=== PATIENT | male | born 1945 | race Asian ===

== ENCOUNTER 2024-03-06 04:21 | Observation (INO) ==
--- OUTSIDE RECORDS SUMMARY | 2024-03-06 04:27 | External Medical Summary | Summary of Care ---
Author Name Unknown Organization [facility] Address [address] [place] [address] Phone [phone] Care Team Providers Care Auto Dismantler Name Role Phone Houston Zelayae Geneva DO Primary Care Provider [phone] Reason for Referral * Ancillary Services (Within 30 days (routine)) - Authorized Specialty Diagnoses / Procedures Referred By Kit yañez Referred To Contact Gastroenterology Diagnoses History of colon polyps Kristofer Jolly III, MD [address] [place] [address] Referral ID Status Reason Start Date Expiration Date Visits Requested Visits Authorized [id number] Authorized Ancillary Services Required 01/10/[phone] Question Answer Referral Priority Within 30 days (routine) Where should this appointment be scheduled? [facility] Comments ALERT: Do not order for pediatric patients (18 years or younger). Cancel off screen and order PEDS GASTROENTEROLOGY CONSULT (Type: 1 visit only-Evaluate and Treat) The following Pt. Instructions are available: - Gastro Colonoscopy Prep Instructions [[id number]] - Gastro Colonoscopy Prep Instructions (Swedish Version) [[id number]] Go to the Pt. Instructions section within the Visit Navigator to access. Colonoscopy ASGE Guidelines: Colon polyps ADDITIONAL INFORMATION 1. Is the patient on Coumadin? No 2. Is the patient on Pradaxa? No Reason for Visit * Reason Onset Date Comments Physical-Exam Medication Administration 01/10/2024 Flu an d/or Pneumo Inj Encounter Details Date Type Department Care Team (Late st Contact Info) Description 01/10/2024 10:00 AM EDT Office Visit [facility] [address] [place] [id number] Kristofer Jolly III, MD [address] [place] [id number] Routine medical exam*; Need for prophylactic vaccination and inoculation against influenza; Dyslipidemia, goal LDL below 130; History of colon polyps Allergies Active Allergy Reactions Criticality Noted Date Comments Molds & Smuts 11/07/2015 Nasal congestion/ sneezing Pollen 11/07/2015 Nasal congestion/ sneezing documented as of this encounter (statuses as of 01/13/2024) Medications Medication Sig Dispensed Refills Start Date End Date Status Multivitamin Adults Oral Tablet Take 1 Tablet by mouth as needed (3 times a week). 30 Tab 07/26/2020 Active Zinc Sulfate 220 (50 Zn) MG Oral Tablet Take 1 Tablet by mouth as needed (Twice a week). 30 Tab 07/26/2020 Active CoQ10 50 MG Oral Capsule Take by mouth. Active Magnesium 100 MG Oral Tablet Take 1 Tablet by mouth. Twice weekly Active B-12 100 MCG Oral Tablet Take by mouth. Active Hydrocortisone 2.5 % External CreamIndications: Inflamed seborrheic keratosis Apply topically to affected area 3 times a day. To affected area. 30 g 5 09/20/2023 Active Cyclobenzaprine HCl 5 MG Oral Tablet (Flexeril)Indicat ions:Acute right-sided low back pain with right-sided sciatica Take 1 Tablet by mouth 3 times a day as needed for Muscle spasms. 30 Tablet 5 10/04/2023 01/10/2024 Discontinued (Medication List Clean Up) documented as of this encounter (statuses as of 01/13/2024) Active Problems Problem Noted Date Diagnosed Date BPH with obstruction/lower urinary tract symptom s 05/21/2022 Advance directive on file 11/14/2018 Dyslipidemia, goal LDL below 130 04/15/2009 Overview: Per Lipid Taxonomy. 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 Calculus of kidney 08/29/2002 9 PURE HYPERCHOLESTEROLEM 04/02 Overview: Per Lipid Taxonomy. documented as of this encounter (statuses as of 01/13/2024) Immunizations Name Administration Dates Next Due COVID-19 mRNA, LNP-s, No Pre serve, 2-Dose Series (Pfizer) 01/28/2021,07/10/2020,06/14/2020 COVID-19, LNP-s, No Preserve , Levar-sucrose, Ages 12+ (Pfizer) 08/26/2021 Pneumococcal Conjugate Vacc, 13 Valent (Prevnar) 02/28/2018,10/29/2015 Pneumococcal Polysaccharide PPV23 (Pneumovax) 12/11/2010 Seasonal Influenza, High Dos e, Trivalent, PF, IM (Fluzone HD) 01/10/2024,02/28/2018 Seasonal Influenza, Quadriva lent Hd (Fluzone Hd) 02/14/2023,01/07/2022,01/08/2021 Seasonal Influenza, Quadriva lent, No Preserve, IM 01/24/2020,02/28/2018 Seasonal Influenza, Trivalen t, (IIV3), with Preserv, (Fluzone) 03/22/2013,01/11/2012,05/10/2006 TD, Preservative Free 10/29/2016 TDAP, Age 7 and older, IM (Adacel) 08/09/2006 Varicella Zoster Vaccine (Adult) 11/02/2006 Zoster Vaccine Recombinant (Shingrix) 09/22/2019 ,04/03/2019 documented as of this encounter Social History Tobacco Use Types Packs/Day Years Used Date Smoking Tobacco: Never Smokeless Tobacco: Never Alcohol Use Standard Drinks/Week Comments Never 0 (1 standard drink = 0.6 oz pur e alcohol) PHQ-2 Answer Date Recorded PHQ Adult Total Score 0 10/04/2023 Hunger Vital Sign Answer Date Recorded Within the past 12 months, y ou worried that your food would run out before you got the money to buy more. Never true 09/15/19 23 Within the past 12 months, t he food you bought just didn't last and you didn't have money to get more. Never true 09/14/2022 Utilities Answer Date Recorded Do you have trouble paying y our heating, water, or electric bill? (Adult - for ages 18 years and over) Not on file 10/19/2023 Is your family able to pay t he heat, water, or electric bill? (Household - for ages 0-17 years) Not on file 10/19/2023 Does your family have access to good internet? (Household - for ages 0-17 years) Not on file 10/19/2023 Social Connections Answer Date Recorded How often do you feel lonely or isolated from those around you? (Adult - for ages 18 years and over) Not on file 10/19/2023 Sex and Gender Information Value Date Recorded Sex Assigned at Male 01/05/2022 11:06 AM EDT Gender Identity Male 01/05/2022 11:06 AM EDT Sexual Orientation Straight 01/05/2022 11 :06 AM EDT Job Start Date Occupation Industry Not on file Not on file Not on file documented as of this encounter Last Filed Vital Signs Vital Sign Reading Time Taken Comments Blood Pressure 126/74 01/10/2024 9:51 AM EDT Pulse 62 01/10/2024 9:51 AM EDT Temperature 36.4 C (97.5 F) 01/10/2024 9:51 AM ED T Respiratory Rate 18 01/10/2024 9:51 AM EDT Oxygen Saturation 99% 01/10/2024 9:51 AM EDT Inhaled Oxygen Concentration - - Weight 76.6 kg (168 lb 12.8 oz) 01/10/2024 9:51 AM EDT Height - - Body Mass Index 23.88 10/04/2023 2:45 PM EDT documented in this encounter Progress Notes * Kristofer Jolly III, MD - 01/10/2024 10:28 AM EDT Physical examination has had radiculopathy spinal surgery notes reviewed has just started physical therapy eyes are checked sees dentist no swallowing difficulties walks 45 minutes most every day no exertional chest pain or shortness of breath no claudication no bleeding urine or bowels elevated PSA followed by Urology no lumps or swelling in the groin area Michael Porter is a 78 year old male. Chief Complaint Patient presents with Physical-Exam Medication Administration Flu and/or Pneumo Inj PMH: Patient Active Problem List Diagnosis Dyslipidemia, goal LDL below 130 Advance directive on file BPH with obstruction/lower urinary tract symptoms Current Outpatient Medications Medication Sig Dispense Refill Multivitamin Adults Oral Tablet Take 1 Tablet by mouth as needed (3 times a week). 30 Tab 0 Zinc Sulfate 220 (50 Zn) MG Oral Tablet Take 1 Tablet by mouth as needed (Twice a week). 30 Tab 0 CoQ10 50 MG Oral Capsule Take by mouth. Magnesium 100 MG Oral Tablet Take 1 Tablet by mouth. Twice weekly B-12 100 MCG Oral Tablet Take by mouth. Hydrocortisone 2.5 % External Cream Apply topically to affected area 3 times a day. To affected area. 30 g 5 No current facility-administered medications for this visit. Review of patient's allergies indicates: Allergen Reactions Molds & Smuts Nasal congestion/ sneezing Pollen Nasal congestion/ sneezing Past Medical History: Diagnosis Date Esophageal reflux Gastroesophageal Reflux (GERD) Other disorders of vitreous detatchment Past Surgical History: Procedure Laterality Date COLONOSCOPY, DIAGNOSTIC (RECTUM) 11/15/2017 normal, repeat 3 yrs/COLONOSCOPY FLEXIBLE PROXIMAL DIAGNOSTIC performed by Kori Cardenas DO at ENDOSCOPY [facility] COLONOSCOPY, DIAGNOSTIC (RECTUM) 02/04/2021 diverticulosis sigmoid colon/biopsies show adenomatous polyps/recall 3 years/COLONOSCOPY FLEXIBLE PROXIMAL DIAGNOSTIC performed by Kori Cardenas DO at ENDOSCOPY [facility] EGD, FLEXIBLE, DIAGNOSTIC 04/17/2008 normal EGD, FLEXIBLE, DIAGNOSTIC 11/25/2015 benign esophageal wart/[facility] [place] EGD, FLEXIBLE, DIAGNOSTIC 01/09/2016 gastritis/ESOPHAGOGASTRODUODENOSCOPY (EGD), FLEXIBLE, TRANSORAL, DIAGNOSTIC performed by Yobany Thurston MD at ENDOSCOPY [facility] EGD, FLEXIBLE, REMOVE LESIONS, SNARE METHOD 04/14/2011 mild inflammation- neg. h-pylori EGD, FLEXIBLE, W/BIOPSY 06/08/2006 path-Webb's esophagus-repeat in 1 year EGD, FLEXIBLE, W/BIOPSY 04/08/2007 mild chronic inflammation EGD, W/ENDOSCOPIC US 01/09/2016 liver cyst/ESOPHAGOGASTRODUODENOSCOPY (EGD), FLEXIBLE, TRANSORAL, ENDOSCOPIC ULTRASOUND performed by Yobany Thurston MD at ENDOSCOPY [facility] FRACTURE NOS 1962 elbow REMOVAL OF TONSILS, UNDER AGE 12 1948 Tonsils Removal,<12 Y/O REMOVE CATARACT, INSERT LENS PROSTH REPAIR OF NASAL SEPTUM 04/2000 Dr [address], [place], [place], [facility], with prolonged bleeding REVISION OF ULNAR NERVE AT ELBOW 1975 Objective: The patient is a 78 year old male BP 126/74 | Pulse 62 | Temp 36.4 C (97.5 F) (Tympanic) | Resp 18 | Wt 76.6 kg (168 lb 12.8 oz) | SpO2 99% | BMI 23.88 kg/m | BSA 1.95 m General: alert, healthy, and no distress Eye Exam: PERRLA, extraocular movements intact, conjunctiva are pink and non- injected, sclera clear Ears: External ears normal, Canals clear, TM's Normal Oropharynx: no exudate, no erythema, lips, buccal mucosa, and tongue normal, and mucous membranes are moist Neck: supple, no adenopathy, no bruits, thyroid normal size, non-tender, without nodularity Heart: regular rate & rhythm, no murmur, and no gallops Lungs: lungs clear to auscultation Pulses: carotid=2/4 w/o bruits Abdomen: abdomen soft, non-tender, normal bowel sounds, and no masses or organomegaly Extremities: no edema, no clubbing, no cyanosis Neuro Exam: alert & oriented x 3 with fluent speech, reflexes normal and symmetric Exam (Male): no abnormalities of scrotal contents, no hernia detected ASSESSMENT: (Z00.00) Routine medical exam (primary encounter diagnosis) (Z23) Need for prophylactic vaccination and inoculation against influenza (E78.5) Dyslipidemia, goal LDL below 130 PLAN: Had RSV vaccine at right COVID vaccine discussed influenza vaccine given history of colon polyps check colonoscopy check comprehensive metabolic panel lipids Total time 35 minutes Follow up in 1 year(s). Kristofer Jolly III, MD * Erinn Pool LPN - 01/10/2024 9:53 AM EDT PRE - ADMINISTRATION DOCUMENTATION Are you experiencing any cold symptoms or fever? No Have you had Guillain-[place] Syndrome (an illness that causes paralysis) within the last 6 weeks? No Have you had the flu shot in the past? YES Have you ever had a reaction to the flu shot? No Erinn Pool LPN, 01/10/2024 9:53 AM Immunization Administration Documentation Time Out Procedure Performed: Yes Patient Identified (Ask Name/Date of ): Yes Does the patient have a fever greater than 101 degrees today? No Patient allergic to latex? No VFC Stock: No Immunization(s) verified: Yes, Immunization Name: Flu, VIS Sheet(s) given: Yes Verified Side and Site: Yes Verified Shot(s) with Parent(s)/Patient: Yes documented in this encounter Nursing Notes * Erinn Pool LPN - 01/10/2024 9:52 AM EDT Michael Porter presents for annual physical exam. Medications & HM reviewed. documented in this encounter Plan of Treatment Upcoming Encounters Date Type Department Care Team (Latest Contact Info) Description 03/01/2024 11:15 AM EDT Hospital Encounter [facility], Endoscopy Room [facility] [address] [place] [phone] Yobany Thurston MD [address] [place] [address] 03/01/2024 11:15 AM EDT - 03/01/2024 11:45 AM EDT Surgery [facility], Endoscopy Room [facility] [address] [place] [id number] Yobany Thurston MD [address] [place] [address] ESOPHAGOGASTRODUODENOSCOPY (EGD), FLEXIBLE, TRANSORAL, DIAGNOSTIC 08/16/2024 11:30 AM EDT Office Visit Urology, [facility] [address] [place] [address] Arron Nathan MD [address] [place] [address] Scheduled Orders Name Type Priority Associated Diagnoses Orde r Schedule COMPREHENSIVE METABOLIC PANEL Lab Routine Dyslipidemia, goal LDL below 130 Expected: 01/10/2024 (Approximate), Expires: 01/09/2025 LIPID PANEL WITH DIRECT LDL IF TG IS HIGH Lab Routine Dyslipidemia, goal LDL below 130 Expected: 01/10/2024, Expires: 01/09/2025 Scheduled Procedures Name Priority Associated Diagnoses Date/Ti me ESOPHAGOGASTRODUODENOSCOPY ( EGD), FLEXIBLE, TRANSORAL, DIAGNOSTIC Gastroesophageal reflux 03/01/2024 11:15 AM EDT COLONOSCOPY FLEXIBLE PROXIMA L DIAGNOSTIC Recall History of colonic polyps Scheduled Referrals Name Type Priority Associated Diagnoses Orde r Schedule COLONOSCOPY, GI REFERRAL OP Referral Within 30 days (routine) History of colon polyps Ordered: 01/10/2024 Health Maintenance Due Date Last Done Comments Adult Wellness Visit 2011 Webb's Esophagus Surveilance 01/08/2019 01/09/2016, 01/09/2016, 04/14/2011, Additional history exists COVID-19 Vaccine ( season) 2024 08/26/2021, 01/28/2021, 07/10/2020, Additional history exists Colonoscopy 02/05/2024 02/04/2021, 08/2020, 11/15/2017, Additional history exists Depression Screening 10/03/2024 10/04/2023 DTap/Tdap Vaccines (3 - Td or Tdap) 10/29/2026 10/29/2016, 08/09/2006 Pneumococcal Vaccine: 65+ Years Completed 02/28/2018, 10/29/2015, 12/11/2010 Zoster Vaccines Completed 09/22/2019, 12/0 06/2018, 11/02/2006 Influenza Vaccine (FLU shot) Completed 01/2024, 02/14/2023, 01/07/2022, Additional history exists HPV (Gardasil) Vaccine Aged Out No lo nger eligible based on patient's age to complete this topic Hepatitis B Vaccine Aged Out No longe r eligible based on patient's age to complete this topic MENINGOCOCCAL (MENACTRA/MENVEO) Aged Out No longer eligible based on patient's age to complete this topic documented as of this encounter Medical Devices Not on filedocumented as of this encounter Visit Diagnoses Diagnosis Routine medical exam- Primary Routine general medical examination at a health care facility Need for prophylactic vaccination and inoculation against influenza Dyslipidemia, goal LDL below 130 Other and unspecified hyperlipidemia History of colon polyps Personal history of colonic polyps Gastroesophageal reflux Esophageal reflux documented in this encounter Care Teams Auto Dismantler Relationship Specialty Start Date End Date Emerson Zelaya DO [address] [place] [address] PCP - General Family Medicine 11/15/23 documented as of this encounter"
--- OUTSIDE RECORDS SUMMARY | 2024-03-06 04:27 | External Medical Summary | Summary of Care ---
Author Name Unknown Organization [facility] Address [address] [place] [address] Phone [phone] Care Team Providers Care Coat Repair Inspector Name Role Phone Rik BELLAMY MD, Kristofer Lawson Primary Care Provider [phone] Reason for Visit * Auth/Cert Specialty Diagnoses / Procedures Referred By Kit yañez Referred To Contact Diagnoses Gastroesophageal reflux Gastroesophageal reflux [K21.9] Procedures EGD, FLEXIBLE, DIAGNOSTIC ESOPHAGOGASTRODUODENOSCOPY (EGD), FLEXIBLE, TRANSORAL, DIAGNOSTIC Yobany Thurston MD [address] [place] [address] [facility] [address] [place] [address] Referral ID Status Reason Start Date Expiration Date Visits Re quested Visits Authorized [id number] Encounter Details Date Type Department Care Team (Latest Contact Info) Description 03/01/2024 9:53 AM EDT - 03/01/2024 11:40 AM EDT Hospital Encounter [facility], Endoscopy Room [facility] [address] [place] [address] Yobany Thurston MD [address] [place] [address] Upper GI Endoscopy Discharge Disposition: Home - Self Care Allergies Active Allergy Reactions Criticality Noted Date Comments Molds & Smuts 11/07/2015 Nasal congestion/ sneezing Pollen 11/07/2015 Nasal congestion/ sneezing Shellfish-Derived Products Rash documented as of this encounter (statuses as of 03/01/2024) Medications Medication Sig Dispensed Refills Start Date [...] by mouth. Active Hydrocortisone 2.5 % External CreamIndications:Inf lamed seborrheic keratosis Apply topically to affected area 3 times a day. To affected area. 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 documented as of this encounter (statuses as of 03/01/2024) Resolved Problems Problem Noted Date Diagnosed Date [...] as of this encounter (statuses as of 03/01/2024) Immunizations Name Administration Dates Next Due COVID-19 mRNA, LNP-s, No Pre serve, 2-Dose Series (Pfizer) 01/28/2021,07/10/2020,06/14/2020 COVID-19, LNP-s, No Preserve , Levar-sucrose, Ages 12+ (Pfizer) 08/26/2021 Pneumococcal Conjugate Vacc, 13 Valent (Prevnar) 02/28/2018,10/29/2015 Pneumococcal Polysaccharide PPV23 (Pneumovax) 12/11/2010 Seasonal Influenza Vac., MDV , IM, 0.5 mL (Fluzone) 03/22/2013,01/11/2012,05/10/2006 Seasonal Influenza, High Dos e, Trivalent, PF, IM (Fluzone HD) 01/10/2024,02/28/2018 Seasonal Influenza, Quadriva lent Hd (Fluzone Hd) 02/14/2023,01/07/2022,01/08/2021 Seasonal Influenza, Quadriva lent, No Preserve, IM 01/24/2020,02/28/2018 TD, Preservative Free 10/29/2016 TDAP, Age 7 [...] Sign Reading Time Taken Comments Blood Pressure 118/66 03/01/2024 11:10 AM EDT Pulse 61 03/01/2024 11:10 AM EDT Temperature 36.5 C (97.7 F) 03/01/2024 11:10 AM E DT Respiratory Rate 16 03/01/2024 11:10 AM EDT Oxygen Saturation 97% 03/01/2024 11:10 AM EDT Inhaled Oxygen Concentration - - Weight - - Height - - Body Mass Index - - documented in this encounter H&P Notes * Yobany Thurston MD - 03/01/2024 10:16 AM EDT Endoscopy Pre-Procedure Assessment Name: Michael Porter Date: 03/01/2024 Time: 10:16 AM Procedure: Upper GI Endoscopy; with Indication(s) of evaluation of reflux (including Shaffer pH probe placement) Endoscopy Pre-Procedure Assessment: Prior to the procedure, the patient was identified. The patient's history, medications and allergies were reviewed as per the Anesthesia Assessment. The patient is competent. The risks and benefits of the proposed procedure and the planned sedation were discussed with the patient. All questions were answered and informed consent for the procedure was obtained. This patient has undergone a preprocedural evaluation. A determination has been made to proceed with the planned procedure under [facility] procedural guidelines and the [facility] Non-Emergent, Elective Medical Services and Treatment Recommendations (published on 08-08-19). The community and hospital prevalence of COVID-19 has been discussed as well as this patient's specific risks associated with SARS-CoV-19 infection. Based upon the clinical acuity and patient-specific care considerations, this procedure is deemed a Tier II - Intermediate acuity treatment or service with either progression or the threat of progressive disease related to the delay in treatment. Not providing the service has the potential for increasing morbidity or mortality. There were no vitals taken for this visit. Prior to Admission medications Medication Sig Last Dose Discont. B-12 100 MCG Oral Tablet Take by mouth. 02/29/2024 Magnesium 100 MG Oral Tablet Take 1 Tablet by mouth. Twice weekly 02/29/2024 CoQ10 50 MG Oral Capsule Take by mouth. 02/29/2024 Multivitamin Adults Oral Tablet Take 1 Tablet by mouth as needed (3 times a week). 02/29/2024 Zinc Sulfate 220 (50 Zn) MG Oral Tablet Take 1 Tablet by mouth as needed (Twice a week). 02/29/2024 Hydrocortisone 2.5 % External Cream Apply topically to affected area 3 times a day. To affected area. Patient not taking: Reported on 03/01/2024 Not Taking Review of patient's allergies indicates: Allergen Reactions Molds & Smuts Nasal congestion/ sneezing Pollen Nasal congestion/ sneezing Shellfish-Derived Products Rash Physical Exam: Mental Status Examination: alert and oriented. General: nad, calm Airway Examination: normal oropharyngeal airway and neck mobility. CV: no JVD Respiratory Examination: symmetrical excursion Abd:soft/ntd ASA Grade: II - A patient with mild systemic disease. After reviewing the risks and benefits, the patient was deemed in satisfactory condition to undergothe procedure. The anesthesia plan was to use general anesthesia. Yobany Thurston MD 03/01/2024 documented in this encounter Procedure Notes * Kristofer Jolly III, MD - 03/01/2024 10:16 AM EDTAssociated Order(s): UPPER GI ENDOSCOPY [facility] Patient Name: Michael Porter Procedure Date: 03/01/2024 10:16 AM Date of : 1945 Admit Type: Outpatient Note Status: Finalized Date of : 1945 Admit Type: Outpatient Age: 78 Room: Endo 2 Gender: Male Note Status: Finalized Procedure: Upper GI endoscopy Indications: Heartburn Providers: Yobany Thurston MD (Doctor) Referring MD: Kristofer Jolly III, MD (Referring MD) Medicines: Propofol per Anesthesia Complications: No immediate complications. Estimated blood loss: None. Procedure: Pre-Anesthesia Assessment: - - Prior to the procedure, a History and Physical was performed, patient medications, allergies and sensitivities were reviewed. The patient's tolerance of previous anesthesia was reviewed. See [facility] for further details. - The risks, benefits, and alternatives of the procedure including the sedation options and risks were discussed with the patient. All questions were answered and informed consent was obtained. - Patient identification and proposed procedure were verified prior to the procedure by the physician and the nurse. The procedure was verified in the procedure room. - See [facility] for documentation of the pre-procedure assessment including ASA status. - After I obtained informed consent, the scope was carefully and meticulously passed under direct vision only when the lumen was definitively identified. CO2 insufflation was utilized throughout the entire procedure exclusively. After obtaining informed consent, the endoscope was passed under direct vision. All instruments were visually inspected immediately before and after removal from the patient to ensure they are fully intact. Throughout the procedure, the patient's blood pressure, pulse, and oxygen saturations were monitored continuously.The upper GI endoscopy was accomplished without difficulty. The patient tolerated the procedure well. The GIF-H180 Endoscope ([id number]) was introduced through the mouth, and advanced to the second part of duodenum. Findings & Specimens: The examined esophagus was normal. A single 6 mm sessile polyp with no stigmata of recent bleeding was found in the gastric body. The polyp was removed with a cold snare. Resection and retrieval were complete. The pathology specimen was placed into Bottle Number 1. Patchy mild inflammation was found in the gastric antrum. Biopsies were taken with a cold forceps for histology. The pathology specimen was placed into Bottle Number 2. The examined duodenum was normal. Impression: - Normal esophagus. - A single gastric polyp. Resected and retrieved. - Gastritis. Biopsied. - Normal examined duodenum. Recommendation: - Discharge patient to home (with escort). - Repeat upper endoscopy for surveillance based on pathology results. - Pathology results will be reviewed with appropriate recommendations to follow. - Patient has a contact number available for emergencies. The signs and symptoms of potential delayed complications were discussed with the patient. Return to normal activities tomorrow. Written discharge instructions were provided to the patient. Yobany Thurston MD 03/01/2024 10:53:43 AM This report has been signed electronically. documented in this encounter Nursing Notes * Ercia Su RN - 03/01/2024 11:39 AM EDT Patient is alert, pain free, passing flatus and tolerating po fluids prior to discharge. Patient has been visited by Dr. Thurston. Patient has received and demonstrates understanding of discharge instructions. Patient ambulated to private auto accompanied by endo staff. * Erica Su RN - 03/01/2024 11:05 AM EDT Patient tolerated anesthesia and procedure well. Tolerating po fluids. VSS * Erica Su RN - 03/01/2024 11:00 AM EDT Patient transferred to post endo s/p EGD. Patient sleeping Respirations are even and unlabored on room air. Abdomen soft and non distended. Vital signs stable. * Woody Geiger RN - 03/01/2024 10:53 AM EDT See anesthesia record for medication administered during procedure. Woody Geiger RN Specimen(s) and location(s) verified with physician post procedure 10:53 AM Woody Geiger RN Pt tay EGD w/ bx well. Abd soft post proc. To recovery lying on L side w/ HOB elevated. Pre cleaning of scope at the bedside started by hydroelectric plant technician. documented in this encounter Plan of Treatment Upcoming Encounters Date Type Department Care Team (Late st Contact Info) Description 08/16/2024 11:30 AM EDT Office Visit Urology, [facility] [address] [facility] [place] [address] Arron Nathan MD [address] [place] [address] Pending Results Name Type Priority Associated Diagnoses Date /Time SURGICAL PATHOLOGY Pathology Routine Gastroesophageal reflux 03/01/2024 10:53 AM EDT Scheduled Orders Name Type Priority Associated Diagnoses Orde r Schedule SURGICAL PATHOLOGY Pathology Routine Gastroesophageal reflux Release Upon Ordering for 1 Occurrences starting 03/01/2024, 1 completed Scheduled Procedures Name Priority Associated Diagnoses Date/Ti me ESOPHAGOGASTRODUODENOSCOPY ( EGD), FLEXIBLE, TRANSORAL, DIAGNOSTIC Gastroesophageal reflux 03/01/2024 10:40 AM EDT COLONOSCOPY FLEXIBLE PROXIMA L DIAGNOSTIC Recall History of colonic polyps Health Maintenance Due Date Last Done Comments Adult Wellness Visit 2011 Colonoscopy 02/05/2024 02/04/2021, 08/2020, 11/15/2017, Additional history exists Depression Screening 10/03/2024 10/04/2023 DTap/Tdap Vaccines (3 - Td or Tdap) 10/29/2026 10/29/2016, 08/09/2006 Webb's Esophagus Surveilance 03/01/2027 03/01/2024, 01/09/2016, 01/09/2016, Additional history exists Pneumococcal Vaccine: 65+ Years Completed 02/28/2018, 10/29/2015, 12/11/2010 Zoster Vaccines Completed 09/22/2019, 06/2018, 11/02/2006 Influenza Vaccine (FLU shot) Completed 01/2024, 02/14/2023, 01/07/2022, Additional history exists COVID-19 Vaccine Completed 02/08/2024, , 01/28/2021, Additional history exists HPV (Gardasil) Vaccine Aged [...] Not on filedocumented as of this encounter Procedures Procedure Name Priority Date/Time Associated Diagnosis Comments UPPER GI ENDOSCOPY 03/01/2024 10 :16 AM EDT documented in this encounter Results * UPPER GI ENDOSCOPY (03/01/2024 10:16 AM EDT) 03/01/2024 10:1 6 AM EDT Narrative Procedure Note Kristofer Jolly III, MD - 03/01/2024 10:16 AM EDT [facility] Patient Name: Michael Porter Procedure Date: 03/01/2024 10:16 AM Date of : 1945 Admit Type: Outpatient Note Status:Finalized Date of : 1945 Admit Type: Outpatient Age: 78 Room: [facility] 2 Gender: Male Note Status: Finalized Procedure: Upper GI endoscopy Indications: Heartburn Providers: Yobany Thurston MD (Doctor) Referring MD: Kristofer Jolly III, MD (Referring MD) Medicines: Propofol per Anesthesia Complications: No immediate complications. Estimated blood loss:None. Procedure: Pre-Anesthesia Assessment: - - Prior to the procedure, a History and Physicalwas performed, patient medications, allergies and sensitivities were reviewed. Thepatient's tolerance of previous anesthesia was reviewed. See [facility] for furtherdetails. - The risks, benefits, and alternatives of theprocedure including the sedation options and risks were discussed with the patient.All questions were answered and informed consent was obtained. - Patient identification and proposed procedurewere verified prior to the procedure by the physician and the nurse. The procedure wasverified in the procedure room. - See [facility] for documentation of the pre-procedureassessment including ASA status. - After I obtained informed consent, the scope wascarefully and meticulously passed under direct vision only when the lumen wasdefinitively identified. CO2 insufflation was utilized throughout the entire procedureexclusively. After obtaining informed consent, the endoscope waspassed under direct vision. All instruments were visually inspected immediatelybefore and after removal from the patient to ensure they are fully intact. Throughout the procedure, the patient's bloodpressure, pulse, and oxygen saturations were monitored continuously.The upper GI endoscopywas accomplished without difficulty. The patient tolerated the procedurewell. The GIF-H180 Endoscope ([id number]) was introduced through the mouth, andadvanced to the second part of duodenum. Findings & Specimens: The examined esophagus was normal. A single 6 mm sessile polyp with no stigmata of recent bleeding wasfound in the gastric body. The polyp was removed with a cold snare. Resection and retrieval werecomplete. The pathology specimen was placed into Bottle Number 1. Patchy mild inflammation was found in the gastric antrum. Biopsieswere taken with a cold forceps for histology. The pathology specimen was placed into Bottle Number 2. The examined duodenum was normal. Impression: - Normal esophagus. - A single gastric polyp. Resected and retrieved. - Gastritis. Biopsied. - Normal examined duodenum. Recommendation: - Discharge patient to home (with escort). - Repeat upper endoscopy for surveillance based onpathology results. - Pathology results will be reviewed withappropriate recommendations to follow. - [facility] The signs and symptoms of potential delayed complications were discussed withthe patient. Return to normal activities tomorrow. Written discharge instructionswere provided to the patient. Yobany Thurston MD 03/01/2024 10:53:43 AM This report has been signed electronically. Kristofer Jolly III, MD [facility] documented in this encounter Visit Diagnoses Diagnosis Gastroesophageal reflux Esophageal reflux documented in this encounter Administered Medications Inactive Administered Medications - up to 3 most recent administrations Medication Order MAR Action Action Date Dose Rate Site isolyte-S pH 7.4 infusion Intravenous, at 100 mL/hr, Plasma-LYTE 148, isolyte-S, and isolyte-S pH 7.4 are considered equivalent - including for MAR barcode scanning., CONTINUOUS, Starting on Wed03/01/24 at 1045, Until Wed03/01/24 at 1541, Pre-Op Continue from Pre-Op 03/01/2024 10:36 AM EDT 100 mL/hr New Bag 03/01/2024 10:30 AM EDT 100 mL/hr documented in this encounter Active and Recently Administered Medications Times are shown in EDT. Continuous Medication Order 02/28/2024 02/29/2024 03/01/2024 isolyte-S pH 7.4 infusion Intravenous, at 100 mL/hr, Plasma-LYTE 148, isolyte-S, and isolyte-S pH 7.4 are considered equivalent - including for MAR barcode scanning., CONTINUOUS, Starting on Wed03/01/24 at 1045, Until Wed03/01/24 at 1541, Pre-Op 1030 (New Bag - Prov ider: Elma Matamoros RN)1036 (Continue from Pre-Op - Provider: Alvin Urbina CRNA)1052 (Anes Intra-Op Fluid - Provider: Alvin Urbina CRNA) documented in this encounter Care Teams Coat Repair Inspector Relationship Specialty Start Date End Date Kristofer Jolly III, MD [address] [place] [address] PCP - General Family Medicine 02/03/24 documented as of this encounter
--- OUTSIDE RECORDS SUMMARY | 2024-03-06 04:27 | External Medical Summary ---
Author Name Unknown Address Unknown Organization K01:[facility] [place] - [address] [facility] [address] Laboratory Report Ordering Provider Test Date Status JESSICATOMMY III 01/17/2024 09:27:46 Final Observation Date Value Abnormality Reference (Units ) Status Triglyceride 01/17/2024 09:27:46 110 <=174 ( mg/dL) Final Triglyceride Reference Range s (mg/dL):
<150 Acceptable
150-174 Borderline high
175-499 High
>=500 Very high Cholesterol 01/17/2024 09:27:46 165 <200 (mg /dL) Final Total Cholesterol Reference Ranges (mg/dL):
<200 Desirable
200-239 Borderline high
>=240 High HDL 01/17/2024 09:27:46 41 >39 (mg/dL ) Final HDL Cholesterol Reference Ra nges (mg/dL):
>=60 High (Desirable)
<50 Low (Undesirable) For Females
<40 Low (Undesirable) For Males NON-HDL CHOLESTEROL 01/17/2024 09:27:46 124 <=159 (mg/dL) Final Non-HDL Cholesterol Referenc e Range (mg/dL):
<100 Target level for high risk ASCVD patient
<130 Optimal for general population
130-159 Near optimal for general population
160-189 Borderline High
190-219 High
>=220 Very High LDL, (calculated) 01/17/2024 09:27:46 102 <= 129 (mg/dL) Final LDL Cholesterol Reference Ra nges (mg/dL):
<70 Target level for high risk ASCVD patient
<100 Optimal for general population
100-129 Near optimal for general population
130-159 Borderline high
160-189 High
>=190 Very high Performing Location [facility] [place] - [address] [facility] [id number]
--- OUTSIDE RECORDS SUMMARY | 2024-03-06 04:27 | External Medical Summary | Summary of Care ---
Author Name Unknown Organization [facility] Address [address] [place] [address] Phone [phone] Care Team Providers Care Flight Readiness Technician Name Role Phone Emerson Zelaya DO Primary Care Provider [phone] Encounter Details Date Type Department Care Team (Late st Contact Info) Description 01/15/2024 Orders Only PATIENT PORTAL DO NOT DELETE THIS DEPT USED BY [place] [id number] Allergies Active Allergy Reactions Criticality Noted Date Comments Molds & Smuts 11/07/2015 Nasal congestion/ sneezing Pollen 11/07/2015 Nasal congestion/ sneezing documented as of this encounter (statuses as of 01/15/2024) Medications Medication Sig Dispensed Refills Start Date [...] by mouth. Active Hydrocortisone 2.5 % External CreamIndications:Infl dennys seborrheic keratosis Apply topically to affected area 3 times a day. To affected area. 30 g 5 09/20/2023 Active documented as of this encounter (statuses as of 01/15/2024) Active Problems Problem Noted Date Diagnosed Date BPH with obstruction/lower urinary tract symptom s 05/21/2022 Advance directive on file 11/14/2018 Dyslipidemia, goal LDL below 130 04/15/2009 Overview: Per Lipid Taxonomy. documented as of this encounter (statuses as of 01/15/2024) Resolved Problems Problem Noted Date Diagnosed Date [...] as of this encounter (statuses as of 01/15/2024) Immunizations Name Administration Dates Next Due COVID-19 mRNA, LNP-s, No Pre serve, 2-Dose Series ([employer]) 01/28/2021,07/10/2020,06/14/2020 COVID-19, LNP-s, No Preserve , Levar-sucrose, [...] on file documented as of this encounter Plan of Treatment Upcoming Encounters Date Type Department Care Team (Latest Contact Info) Description 03/01/2024 11:15 AM EDT Hospital Encounter [facility], Endoscopy Room [facility] [address] [place] [phone] Yobany Thurston MD [address] [place] [address] 03/01/2024 11:15 AM EDT - 03/01/2024 11:45 AM EDT Surgery [facility], Endoscopy Room [facility] [address] [place] [id number] Yobany Thurston MD [address] [place] [address] ESOPHAGOGASTRODUODENOSCOPY (EGD), FLEXIBLE, TRANSORAL, DIAGNOSTIC 08/16/2024 11:30 AM EDT Office Visit Urology, [facility] [address] [place] [address] Arron Nathan MD [address] [place] [address] Scheduled Procedures Name Priority Associated Diagnoses Date/Ti [...] Not on filedocumented as of this encounter Care Teams Flight Readiness Technician Relationship Specialty Start Date End Date Emerson Zelaya DO [address] [place] [address] PCP - General Family Medicine 11/15/23 documented as of this encounter
--- OUTSIDE RECORDS SUMMARY | 2024-03-06 04:27 | External Medical Summary | Summary of Care ---
Author Name Unknown Organization [facility] Address [address] [place] [address] Phone [phone] Care Team Providers Care Motor Assembler Name Role Phone Jean CarlosEmerson [place] YOUSIF Primary Care Provider [phone] Reason for Visit * Reason Onset Date Comments Films 12/08/2023 Encounter Details Date Type Department Care Team (Late st Contact Info) Description 12/08/2023 Telephone Radiology Film File [address], [place] [id number] Support, Imaging Radiology [address] [place] [address] Films Allergies Active Allergy Reactions Criticality Noted Date Comments Molds & Smuts 11/07/2015 Nasal congestion/ sneezing Pollen 11/07/2015 Nasal congestion/ sneezing documented as of this encounter (statuses as of 12/08/2023) Medications Medication Sig Dispensed Refills Start Date [...] Active Cyclobenzaprine HCl 5 MG Oral Tablet (Flexeril)Indication s:Acute right-sided low back pain with right-sided sciatica Take 1 Tablet by mouth 3 times a day as needed for Muscle spasms. 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 documented as of this encounter (statuses as of 12/08/2023) Resolved Problems Problem Noted Date Diagnosed Date [...] as of this encounter (statuses as of 12/08/2023) Immunizations Name Administration Dates Next Due COVID-19 mRNA, LNP-s, No Pre serve, 2-Dose Series (Backspaces) 01/28/2021,07/10/2020,06/14/2020 COVID-19, LNP-s, No Preserve , Levar-sucrose, Ages 12+ (Pfizer) 08/26/2021 Pneumococcal Conjugate Vacc, 13 Valent (Prevnar) 02/28/2018,10/29/2015 Pneumococcal Polysaccharide PPV23 (Pneumovax) 12/11/2010 Seasonal Influenza, Quadriva lent Hd (Fluzone Hd) 02/14/2023,01/07/2022,01/08/2021 Seasonal Influenza, Quadriva lent, No Preserve, IM 01/24/2020,02/28/2018 Seasonal Influenza, Split, I IV3, With Preserve, Inj 03/22/2013,01/11/2012,05/10/2006 Seasonal Influenza, Trivalen t, High Dose, No Preserve, IM 02/28/2018 TD, Preservative Free 10/29/2016 TDAP, Age 7 [...] on file documented as of this encounter Miscellaneous Notes * Telephone Encounter - Brittany Saeed, System Support - 12/08/2023 1:41 PM EDT [facility] requesting MRI lsp 09/25/23 images be pushed to their system. [place] Authorization to Release on file. Images pushed to [facility] external connection through [employer] Report(s) faxed to [phone]. documented in this encounter Plan of Treatment Upcoming Encounters Date Type Department Care Team (Latest Contact Info) Description 01/10/2024 10:00 AM EDT Office Visit Family Practice [facility] [address] [facility] [place] [address] Kristofer Jolly III, MD [address] [facility] [place] [address] 03/01/2024 11:15 AM EDT Hospital Encounter ENDO [facility], Endoscopy Room [facility] [address] [place] [phone] Yobany Thurston MD [address] [place] [address] 03/01/2024 11:15 AM EDT - 03/01/2024 11:45 AM EDT Surgery ENDO [facility], Endoscopy Room [facility] [address] [place] [phone] Yobany Thurston MD [address] [place] [address] ESOPHAGOGASTRODUODENOSCOPY (EGD), FLEXIBLE, TRANSORAL, DIAGNOSTIC 08/16/2024 11:30 AM EDT Office Visit Urology, [facility] [address] [place] [address] Arron Nathan MD [address] [place] [address] Scheduled Procedures Name Priority Associated Diagnoses Date/Ti me ESOPHAGOGASTRODUODENOSCOPY ( EGD), FLEXIBLE, TRANSORAL, DIAGNOSTIC Gastroesophageal reflux 03/01/2024 11:15 AM EDT COLONOSCOPY FLEXIBLE PROXIMA L DIAGNOSTIC Recall History of colonic polyps Health Maintenance Due Date Last Done Comments Adult Wellness Visit 2011 Webb's Esophagus Surveilance 01/08/2019 01/09/2016, 01/09/2016, 04/14/2011, Additional history exists COVID-19 Vaccine ( season) 2023 08/26/2021, 01/28/2021, 07/10/2020, Additional history exists Influenza Vaccine (FLU shot) (#1) 2024 02/14/2023, 01/07/2022, 01/08/2021, Additional history exists Colonoscopy 02/05/2024 02/04/2021, 08/2020, 11/15/2017, Additional history exists Depression Screening 10/03/2024 10/04/2023 DTaP,Tdap,and Td Vaccines (3 - Td or Tdap) 10/29/2026 10/29/2016, 08/09/2006 Pneumococcal Vaccine: 65+ Years Completed 02/28/2018, 10/29/2015, 12/11/2010 Zoster Vaccines Completed 09/22/2019, 06/2018, 11/02/2006 HPV (Gardasil) Vaccine Aged Out No lo [...] filedocumented as of this encounter Care Teams Motor Assembler Relationship Specialty Start Date End Date Emerson Zelaya DO [address] [place] [address] PCP - General Family Medicine 11/15/23 documented as of this encounter
--- OUTSIDE RECORDS SUMMARY | 2024-03-06 04:27 | External Medical Summary | Summary of Care ---
Author Name Unknown Organization [facility] Address [address] [place] [address] Phone [phone] Care Team Providers Care Building Superintendent Name Role Phone Rik BELLAMY MD, Kristofer Lawson Primary Care Provider [phone] Encounter Details Date Type Department Care Team (Late st Contact Info) Description 10/18/2023 Orders Only Outcomes Research Department [address] [place], [place] [id number] Erum Snowden CHRA [email or web address] Other*[id number] Allergies Active Allergy Reactions Criticality Noted Date Comments Molds & Smuts 11/07/2015 Nasal congestion/ sneezing Pollen 11/07/2015 Nasal congestion/ sneezing documented as of this encounter (statuses as of 10/18/2023) Medications Medication Sig Dispensed Refills Start Date [...] as of this encounter (statuses as of 10/18/2023) Active Problems Problem Noted Date Diagnosed Date BPH with obstruction/lower urinary tract symptom s 05/21/2022 Advance directive on file 11/14/2018 Dyslipidemia, goal LDL below 130 04/15/2009 Overview: Per Lipid Taxonomy. documented as of this encounter (statuses as of 10/18/2023) Resolved Problems Problem Noted Date Diagnosed Date [...] as of this encounter (statuses as of 10/18/2023) Immunizations Name Administration Dates Next Due COVID-19 mRNA, LNP-s, No Pre serve, 2-Dose Series (GenArts) 01/28/2021,07/10/2020,06/14/2020 COVID-19, LNP-s, No Preserve , Levar-sucrose, [...] money to get more. Never true 09/14/2022 Sex and Gender Information Value Date Recorded Sex Assigned at Male 01/05/2022 11:06 AM EDT Gender Identity Male 01/05/2022 11:06 AM EDT Sexual Orientation Straight 01/05/2022 11 :06 AM EDT Job Start Date Occupation Industry Not on file Not on file Not on file documented as of this encounter Plan of Treatment Upcoming Encounters Date Type Department Care Team (Latest Contact Info) Description 11/10/2023 12:20 PM EDT Office Visit Interventional [facility] Center, [facility] [address] [facility] [place] [phone] Herminia Castillo MD [address] [place] [address] [place] [address] 01/10/2024 10:00 AM EDT Office Visit Family Practice [facility] [place] [place] [address] [place] [address] Kristofer Jolly III, MD [address] [place] [id number] 03/01/2024 11:15 AM EDT Hospital Encounter ENDO OSSC, Endoscopy Room [facility] [address] [place], [place] [phone] Yobany Thurston MD [address] [place] [address] 03/01/2024 11:15 AM EDT - 03/01/2024 11:45 AM EDT Surgery ENDO [facility], Endoscopy Room [facility] [address] [place] [phone] Yobany Thurston MD [address] [place] [address] ESOPHAGOGASTRODUODENOSCOPY (EGD), FLEXIBLE, TRANSORAL, DIAGNOSTIC 08/16/2024 11:30 AM EDT Office Visit Urology, [facility] [address] [place] [address] Arron Nathan MD 27 [facility] [address] [place] [address] Scheduled Orders Name Type Priority Associated Diagnoses Orde r Schedule MYCODE SUBSEQUENT ADULT Lab Routine [employer] Research Other*[id number] Every 6 Months for 2 Occurrences starting 10/18/2023 until 11/06/2024 Scheduled Procedures Name Priority Associated Diagnoses Date/Ti me ESOPHAGOGASTRODUODENOSCOPY ( EGD), FLEXIBLE, TRANSORAL, DIAGNOSTIC Gastroesophageal reflux 03/01/2024 11:15 AM EDT COLONOSCOPY FLEXIBLE PROXIMA L DIAGNOSTIC Recall History of colonic polyps Health Maintenance Due Date Last Done Comments Webb's Esophagus Surveilance 01/08/2019 01/09/2016, 01/09/2016, 04/14/2011, Additional history exists COVID-19 Vaccine ( season) 2023 08/26/2021, 01/28/2021, 07/10/2020, Additional history exists Colonoscopy 02/05/2024 02/04/2021, 08/2020, 11/15/2017, Additional history exists Depression Screening 10/03/2024 10/04/2023 DTaP,Tdap,and Td Vaccines (3 - Td or Tdap) 10/29/2026 10/29/2016, 08/09/2006 Pneumococcal Vaccine: 65+ Years Completed 02/28/2018, 10/29/2015, 12/11/2010 Zoster Vaccines Completed 09/22/2019, 06/2018, 11/02/2006 Influenza Vaccine (FLU shot) Completed , 01/07/2022, 01/08/2021, Additional history exists GARDASIL-HPV IMMUNIZATION SERIES Aged Out No longer eligible based on patient's age to complete this topic Hepatitis B Aged Out No longer eligi ble based on patient's age to complete this topic MENINGOCOCCAL (MENACTRA/MENVEO) Aged Out No longer eligible based on patient's age to complete this topic documented as of this encounter Medical Devices Not on filedocumented as of this encounter Visit Diagnoses Diagnosis [employer] Research Other*[id number] Gastroesophageal reflux Esophageal reflux documented in this encounter Care Teams Building Superintendent Relationship Specialty Start Date End Date Kristofer Jolly III, MD [address] [facility] [place] [address] PCP - General 12/16/1995 documented as of this encounter
--- OUTSIDE RECORDS SUMMARY | 2024-03-06 04:27 | External Medical Summary ---
Author Name Unknown Address Unknown Organization K[facility] [place] [address] Laboratory Report Ordering Provider Test Date Status TOMMY LOPEZ III 01/17/2024 09:27:46 Final Observation Date Value Abnormality Reference (Units ) Status BUN 01/17/2024 09:27:46 18 6-20 (mg/dL) Final Creatinine 01/17/2024 09:27:46 1.1 0.6-1.2 (mg/dL) Final Glomerular filtration rate/1.73 sq M.predicted [Volume Rate/Area] in Serum, Plasma or Blood by Creatinine-based formula (CKD-EPI) 01/17/2024 09:27:46 72 >=60 (mL/min) Final eGFR is calculated based on the CKD-EPI 2020 equation. Sodium 01/17/2024 09:27:46 143 135-146 (m mol/L) Final Potassium 01/17/2024 09:27:46 4.6 3.5-5.1 (m mol/L) Final Cl 01/17/2024 09:27:46 106 98-107 (mm ol/L) Final CO2 01/17/2024 09:27:46 26 22-32 (mmo l/L) Final Anion gap 01/17/2024 09:27:46 11 7-15 (mmol /L) Final Glucose 01/17/2024 09:27:46 96 70-120 (mg /dL) Final Albumin 01/17/2024 09:27:46 4.6 3.8-5.0 (g /dL) Final AST (Aspartate aminotransferase) 01/17/2024 09:27:46 19 10-50 (U/L) Final Alk Phos 01/17/2024 09:27:46 53 35-130 (U/ L) Final Bilirubin, Total 01/17/2024 09:27:46 0.3 <=1 .2 (mg/dL) Final Calcium 01/17/2024 09:27:46 9.7 8.4-10.2 ( mg/dL) Final Protein 01/17/2024 09:27:46 7.3 6.0-8.3 (g /dL) Final ALT (Alanine aminotransferase) 01/17/2024 09:27:46 25 10-50 (U/L) Final Performing Location [facility] [address] [place] [address]
--- OUTSIDE RECORDS SUMMARY | 2024-03-06 04:27 | External Medical Summary | Summary of Care ---
Author Name Unknown Organization [facility] Address [address] [place] [address] Phone [phone] Care Team Providers Care Merchandise Director Name Role Phone Emerson Zelaya DO Primary Care Provider [phone] Reason for Visit * Reason Comments Outpatient Testing Encounter Details Date Type Department Care Team (Late st Contact Info) Description 01/17/2024 9:40 AM EDT Laboratory Laboratory [facility] [address] [place] [phone] [facility] 200 [facility] [place] [address] Dyslipidemia, goal LDL below 130 Allergies Active Allergy Reactions Criticality Noted Date Comments Molds & Smuts 11/07/2015 Nasal congestion/ sneezing Pollen 11/07/2015 Nasal congestion/ sneezing documented as of this encounter (statuses as of 01/17/2024) Medications Medication Sig Dispensed Refills Start Date [...] as of this encounter (statuses as of 01/17/2024) Active Problems Problem Noted Date Diagnosed Date BPH with obstruction/lower urinary tract symptom s 05/21/2022 Advance directive on file 11/14/2018 Dyslipidemia, goal LDL below 130 04/15/2009 Overview: Per Lipid Taxonomy. documented as of this encounter (statuses as of 01/17/2024) Resolved Problems Problem Noted Date Diagnosed Date [...] as of this encounter (statuses as of 01/17/2024) Immunizations Name Administration Dates Next Due COVID-19 mRNA, LNP-s, No Pre serve, 2-Dose Series ([place]) 01/28/2021,07/10/2020,06/14/2020 COVID-19, LNP-s, No Preserve , Levar-sucrose, [...] EDT Hospital Encounter ENDO [facility], Endoscopy Room [facility] [address] [place] [phone] Yobany Thurston MD [address] [place] [address] 03/01/2024 11:15 AM EDT - 03/01/2024 11:45 AM EDT Surgery ENDO [facility], Endoscopy Room [facility] [address] [place] [phone] Yobany Thurston MD [address] [place] [address] ESOPHAGOGASTRODUODENOSCOPY (EGD), FLEXIBLE, TRANSORAL, DIAGNOSTIC 08/16/2024 11:30 AM EDT Office Visit Urology, [facility] [address] [place] [address] Arron Nathan MD [address] [place] [address] Pending Results Name Type Priority Associated Diagnoses Date /Time COMPREHENSIVE METABOLIC PANEL Lab Routine Dyslipidemia, goal LDL below 130 01/17/2024 9:27 AM EDT LIPID PANEL WITH DIRECT LDL IF TG IS HIGH Lab Routine Dyslipidemia, goal LDL below 130 01/17/2024 9:27 AM EDT Scheduled Procedures Name Priority Associated Diagnoses Date/Ti nh ESOPHAGOGASTRODUODENOSCOPY ( EGD), FLEXIBLE, TRANSORAL, DIAGNOSTIC Gastroesophageal [...] as of this encounter Visit Diagnoses Diagnosis Dyslipidemia, goal LDL below 130 Other and unspecified hyperlipidemia Gastroesophageal reflux Esophageal reflux documented in this encounter Care Teams Merchandise Director Relationship Specialty Start Date End Date Emerson Zelaya DO [address] [place] [address] PCP - General Family Medicine 11/15/23 documented as of this encounter
--- OUTSIDE RECORDS SUMMARY | 2024-03-06 04:28 | External Medical Summary | Summary of Care ---
Author Name Unknown Organization [facility] Address [address] [facility] [place] [address] Phone [phone] Care Team Providers Care Adobe Developer Name Role Phone Rik BELALMY MD, Kristofer Lawson Primary Care Provider [phone] Reason for Visit * Reason Comments Re-Check Encounter Details Date Type Department Care Team (Late st Contact Info) Description 09/20/2023 11:00 AM EDT Office Visit Family Practice [facility] [address] Emerson Zelaya, DO 200 [place] [address] Spinal stenosis of lumbar region without neurogenic claudication*; Inflamed seborrheic keratosis Allergies Active Allergy Reactions Criticality Noted Date Comments Molds & Smuts 11/07/2015 Nasal congestion/ sneezing Pollen 11/07/2015 Nasal congestion/ sneezing documented as of this encounter (statuses as of 09/20/2023) Medications Medication Sig Dispensed Refills Start Date [...] MCG Oral Tablet Take by mouth. Active Cyclobenzaprine HCl 5 MG Oral Tablet (Flexeril)Indicati ons:Acute right-sided low back pain with right-sided sciatica Take 1 Tablet by mouth 3 times a day as needed for Muscle spasms. 30 Tablet 09/08/2023 Active HYDROcodone-Acetam inophen 5-325 MG Oral TabletIndications: Spinal stenosis of lumbar region without neurogenic claudication,Nerve sheath tumor,Acute right-sided low back pain with right-sided sciatica Take 1 Tablet by mouth every 8 hours as needed for Pain, Mild. 15 Tablet 09/08/2023 Active predniSONE 10 MG Oral Tablet (Deltasone)Indicat ions:Spinal stenosis of lumbar region without neurogenic claudication Take 5 tabs for 2 days, 4 tabs for 2 days, 3 tabs for 2 days, 2 tabs for 2 days 1 tab for 2 days 30 Tablet 09/20/2023 Active Hydrocortisone 2.5 % External CreamIndications:I nflamed seborrheic keratosis Apply topically to affected area 3 times a day. To affected area. 30 g 5 09/20/2023 Active predniSONE 20 MG Oral Tablet (Deltasone)Indicat ions:Spinal stenosis of lumbar region without neurogenic claudication,Nerve sheath tumor,Acute right-sided low back pain with right-sided sciatica 1 tab 3 times a day for 3 days, then 1 tab 2 times a day for 3 days, then 1 tab daily for 3 days 18 Tablet 09/08/2023 4 Discontinued documented as of this encounter (statuses as of 09/20/2023) Active Problems Problem Noted Date Diagnosed Date BPH with obstruction/lower urinary tract symptom s 05/21/2022 Advance directive on file 11/14/2018 Dyslipidemia, goal LDL below 130 04/15/2009 Overview: Per Lipid Taxonomy. documented as of this encounter (statuses as of 09/20/2023) Resolved Problems Problem Noted Date Diagnosed Date [...] as of this encounter (statuses as of 09/20/2023) Immunizations Name Administration Dates Next Due COVID-19 [...] Preserve, IM 02/28/2018 TD, Preservative Free 10/29/2016 TDAP (age 11 and older)(Adacel) 08/09/2006 Varicella Zoster Vaccine (Adult) 11/02/2006 Zoster Vaccine Recombinant (Shingrix) 09/22/2019 ,04/03/2019 documented as of this encounter Social History Tobacco Use Types Packs/Day Years Used Date Smoking Tobacco: Never Smokeless Tobacco: Never Alcohol Use Standard Drinks/Week Comments Never 0 (1 standard drink = 0.6 oz pur e alcohol) PHQ-2 Answer Date Recorded PHQ-2 Score 0 01/17/2020 Hunger Vital Sign Answer Date Recorded Within [...] Sign Reading Time Taken Comments Blood Pressure 130/70 09/20/2023 11:07 AM EDT Pulse 85 09/20/2023 11:07 AM EDT Temperature 36.7 C (98.1 F) 09/20/2023 11:07 AM E DT Respiratory Rate 16 09/20/2023 11:07 AM EDT Oxygen Saturation 98% 09/20/2023 11:07 AM EDT Inhaled Oxygen Concentration - - Weight 76.3 kg (168 lb 3.2 oz) 09/20/2023 11:07 AM EDT Height - - Body Mass Index 23.79 09/02/2023 3:40 PM EDT documented in this encounter Progress Notes * Emerson Zelaya, DO - 09/20/2023 11:16 AM EDT Subjective: Michael Porter is a 78 year old male. Chief Complaint Patient presents with Re-Check HPI: Pt here in follow-up. Feels a big amount of progress but not still not back to normal. He still has pain going down his leg but much better. He takes occasional mucle relaxer. When he feels stiffness he takes it. He did not even try the Vicodin. He did the steroid and then aleve. He is scheduled for an MRI on 09/24. Will hold on PT til after MRI to see what shows and see how prednisone goes. He had some constipation and used a fleet enema. IT worked well. HE tried stool softners. PMHx, meds, and allergies reviewed Patient Active Problem List Diagnosis Dyslipidemia, goal [...] 100 MCG Oral Tablet Take by mouth. predniSONE 20 MG Oral Tablet (Deltasone) 1 tab 3 times a day for 3 days, then 1 tab 2 times a day for 3 days, then 1 tab daily for 3 days 18 Tablet 0 Cyclobenzaprine HCl 5 MG Oral Tablet (Flexeril) Take 1 Tablet by mouth 3 times a day as needed for Muscle spasms. 30 Tablet 0 HYDROcodone-Acetaminophen 5-325 MG Oral Tablet Take 1 Tablet by mouth every 8 hours as needed for Pain, Mild. 15 Tablet 0 No current facility-administered medications for this visit. Review of patient's allergies indicates: Allergen Reactions Molds & Smuts Nasal congestion/ sneezing Pollen Nasal congestion/ sneezing OBJECTIVE: BP 130/70 | Pulse 85 | Temp 36.7 C (98.1 F) (Tympanic) | Resp 16 | Wt 76.3 kg (168 lb 3.2 oz) |SpO2 98% | BMI 23.79 kg/m | BSA 1.95 m Estimated body mass index is 23.79 kg/m as calculated from the following: Height as of 09/02/23: 1.791 m (5' 10.5"). Weight as of this encounter: 76.3 kg (168 lb 3.2 oz). BP Readings from Last 3 Encounters: 09/20/23 130/70 09/08/23 127/76 09/02/23 110/64 Wt Readings from Last 3 Encounters: 09/20/23 76.3 kg (168 lb 3.2 oz) 09/08/23 76.2 kg (168 lb) 09/02/23 78.9 kg (174 lb) ROS: Negative except for above PHYSICAL EXAM: General: alert, healthy, and no distress Head: Normocephalic, No masses, lesions, tenderness or abnormalities Skin: Adrian ker on his L leg ASSESSMENT/Plan Spinal stenosis of lumbar region without neurogenic claudication (Primary) - predniSONE 10 MG Oral Tablet (Deltasone); Take 5 tabs for 2 days, 4 tabs for 2 days, 3 tabs for 2days, 2 tabs for 2 days 1 tab for 2 days Inflamed seborrheic keratosis - Hydrocortisone 2.5 % External Cream; Apply topically to affected area 3 times a day. To affected area. One more run of lower dose of prednisone. See MRI and consider PT or other intervention afterwards. The above was discussed and understanding was expressed. Emerson Zelaya DO documented in this encounter Nursing Notes * Shobha Stockton LPN - 09/20/2023 11:03 AM EDT Michael Porter presents for 2 week recheck. Medications & HM reviewed. States condition has improved some but not completely healed yet. documented in this encounter Plan of Treatment Upcoming Encounters Date Type Department Care Team (Latest Contact Info) Description 09/25/2023 3:15 PM EDT Imaging Radiology [address] [place] [address] 10/04/2023 2:40 PM EDT Office Visit Family [facility] [address] [place] [address] Emerson Zelaya DO [address] [facility] [place] [address] 10/06/2023 11:15 AM EDT Hospital Encounter [facility]O [facility], Endoscopy Room [facility] [address] [place] [phone] Yobany Thurston MD [address] [place] [address] 10/06/2023 11:15 AM EDT - 10/06/2023 11:45 AM EDT Surgery [facility], Endoscopy Room [facility] [address] [place] [phone] Yobany Thurston MD [address] [place] [address] ESOPHAGOGASTRODUODENOSCOPY (EGD), FLEXIBLE, TRANSORAL, DIAGNOSTIC 11/22/2023 12:20 PM EDT [facility] 200 [facility] [place] [address] Kristofer Jolly III, MD [address] [facility] [place] [address] 08/16/2024 11:30 AM EDT Office Visit Urology, [facility] [address] [place] [address] Arron Nathan MD 27 [facility] [place] [address] [place] [address] Scheduled Procedures Name Priority Associated Diagnoses Date/Ti me ESOPHAGOGASTRODUODENOSCOPY ( EGD), FLEXIBLE, TRANSORAL, DIAGNOSTIC Gastroesophageal reflux 10/06/2023 11:15 AM EDT COLONOSCOPY FLEXIBLE PROXIMA L DIAGNOSTIC Recall History of colonic polyps Health Maintenance Due Date Last Done Comments Webb's Esophagus Surveilance 01/08/2019 01/09/2016, 01/09/2016, 04/14/2011, Additional history exists Depression Screening 01/15/2021 01/16/2020 COVID-19 Vaccine ( season) 2023 08/26/2021, 01/28/2021, 07/10/2020, Additional history exists Colonoscopy 02/05/2024 02/04/2021, 08/2020, 11/15/2017, Additional history exists DTaP,Tdap,and Td Vaccines (3 - Td or [...] as of this encounter Visit Diagnoses Diagnosis Spinal stenosis of lumbar region without neurogenic claudication- Primary Spinal stenosis, lumbar region, without neurogenic claudication Inflamed seborrheic keratosis Gastroesophageal reflux Esophageal reflux documented in this encounter Care Teams Adobe Developer Relationship Specialty Start Date End Date Kristofer Jolly III, MD [address] [place] [address] PCP - General 12/16/1995 documented as of this encounter
--- OUTSIDE RECORDS SUMMARY | 2024-03-06 04:28 | External Medical Summary | Summary of Care ---
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 Acute right-sided low back pain with right-sided sciatica Procedures MRI L SPINE WO CONTRAST Emerson Zelaya DO [address] [place] [id number] Referral ID Status Reason Start Date Expiration Date V isits Requested Visits Authorized [id number] Pending Review 09/15/2023 999 999 Reason for Visit * Reason Comments Back Pain Encounter Details Date Type Department Care Team (Late st Contact Info) Description 09/08/2023 3:40 PM EDT Office Visit [facility] [address] [place] [address] Emerson Zelaya DO [address] [place] [id number] Spinal stenosis of lumbar region without neurogenic claudication*; Nerve sheath tumor; Acute right-sided low back pain with right-sided sciatica Allergies Active Allergy Reactions Criticality Noted Date Comments Molds & Smuts 11/07/2015 Nasal congestion/ sneezing Pollen 11/07/2015 Nasal congestion/ sneezing documented as of this encounter (statuses as of 09/08/2023) Medications Medication Sig Dispensed Refills Start Date End Date Status Multivitamin Adults Oral Tablet Take 1 Tablet by mouth as needed (3 times a week). 30 Tab 0 07/26/2020 Active Zinc Sulfate 220 (50 Zn) MG Oral Tablet Take 1 Tablet by mouth as needed (Twice a week). 30 Tab 0 07/26/2020 Active CoQ10 50 MG Oral Capsule Take by mouth. 0 Active Magnesium 100 MG Oral Tablet Take 1 Tablet by mouth. Twice weekly 0 Active B-12 100 MCG Oral Tablet Take by mouth. 0 Active predniSONE 20 MG Oral Tablet (Deltasone)Noelle cations:Spinal stenosis of lumbar region without neurogenic claudication,Ne rve sheath tumor,Acute right-sided low back pain with right-sided sciatica 1 tab 3 times a day for 3 days, then 1 tab 2 times a day for 3 days, then 1 tab daily for 3 days 18 Tablet 0 09/08/2023 Active Cyclobenzaprine HCl 5 MG Oral Tablet (Flexeril)Indic ations:Acute right-sided low back pain with right-sided sciatica Take 1 Tablet by mouth 3 times a day as needed for Muscle spasms. 30 Tablet 0 09/08/2023 Active HYDROcodone-Jaison taminophen 5-325 MG Oral TabletIndicatio ns:Spinal stenosis of lumbar region without neurogenic claudication,Ne rve sheath tumor,Acute right-sided low back pain with right-sided sciatica Take 1 Tablet by mouth every 8 hours as needed for Pain, Mild. 15 Tablet 0 09/08/2023 Active Cyclobenzaprine HCl 5 MG Oral Tablet (Flexeril)Indic ations:Acute right-sided low back pain with right-sided sciatica Take 1 Tablet by mouth 3 times a day as needed for Muscle spasms for up to 2 days. 6 Tablet 0 09/02/2023 4 Discontinued(Ref ill) methylPREDNISol one 4 MG Oral Tablet Therapy Pack (Medrol Dosepack)Indica tions:Acute right-sided low back pain with right-sided sciatica follow package directions 21 Tablet 0 09/02/2023 4 Discontinued documented as of this encounter (statuses as of 09/08/2023) Active Problems Problem Noted Date Diagnosed Date BPH with obstruction/lower urinary tract symptom s 05/21/2022 Advance directive on file 11/14/2018 Dyslipidemia, goal LDL below 130 04/15/2009 Overview: Per Lipid Taxonomy. documented as of this encounter (statuses as of 09/08/2023) Resolved Problems Problem Noted Date Diagnosed Date [...] as of this encounter (statuses as of 09/08/2023) Immunizations Name Administration Dates Next Due COVID-19 mRNA, LNP-s, No Pre serve, 2-Dose Series (Rocawear) 01/28/2021,07/10/2020,06/14/2020 COVID-19, LNP-s, No Preserve , Levar-sucrose, [...] Sign Reading Time Taken Comments Blood Pressure 127/76 09/08/2023 3:42 PM EDT Pulse 89 09/08/2023 3:42 PM EDT Temperature 36.8 C (98.3 F) 09/08/2023 3:42 PM ED T Respiratory Rate 16 09/08/2023 3:42 PM EDT Oxygen Saturation - - Inhaled Oxygen Concentration - - Weight 76.2 kg (168 lb) 09/08/2023 3:42 PM EDT Height - - Body Mass Index 23.76 09/02/2023 3:40 PM EDT documented in this encounter Progress Notes * Emerson Zelyaa DO - 09/08/2023 3:59 PM EDT Subjective: Michael Porter is a 78 year old male. Chief Complaint Patient presents with Back Pain HPI: HE was picking at [employer] in the yard two weeks ago and got sore on the R. He tried ibuprofen for 3 days. He stepped up to Latoya then. Latoya can at least keep him walking. He saw the urgent care and they started Flexeril and a medrol dose jalil. It did give him some relief. IT is at it's worst when he lays down and gets up. Enlarged prostate makes him wake up a lot. The pain shoots down his leg to his foot. Just on the R. No obvious numbness on tingling. HE feels like his leg is weak. IT has not gone out from under him. 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 It had not grown then. PMHx, meds, and allergies reviewed Patient Active Problem List Diagnosis Code Dyslipidemia, goal LDL below 130 E78.5 Advance directive on file Z78.9 BPH with obstruction/lower urinary tract symptoms N40.1, N13.8 Current Outpatient Medications Medication Sig Dispense Refill Multivitamin Adults Oral Tablet Take 1 Tablet by mouth as needed (3 times a week). 30 Tab 0 CoQ10 50 MG Oral Capsule Take by mouth. Magnesium 100 MG Oral Tablet Take 1 Tablet by mouth. Twice weekly B-12 100 MCG Oral Tablet Take by mouth. Zinc Sulfate 220 (50 Zn) MG Oral Tablet Take 1 Tablet by mouth as needed (Twice a week). 30 Tab 0 methylPREDNISolone 4 MG Oral Tablet Therapy Pack (Medrol Dosepack) follow package directions (Patient not taking: Reported on 09/08/2023) 21 Tablet 0 No current facility-administered medications for this visit. Review of patient's allergies indicates: Allergen Reactions Molds & Smuts Nasal congestion/ sneezing Pollen Nasal congestion/ sneezing OBJECTIVE: BP 127/76 | Pulse 89 | Temp 36.8 C (98.3 F) | Resp 16 | Wt 76.2 kg (168 lb) | BMI 23.76 kg/m | BSA 1.95 m Estimated body mass index is 23.76 kg/m as calculated from the following: Height as of 09/02/23: 1.791 m (5' 10.5"). Weight as of this encounter: 76.2 kg (168 lb). BP Readings from Last 3 Encounters: 09/08/23 127/76 09/02/23 110/64 07/15/23 118/70 Wt Readings from Last 3 Encounters: 09/08/23 76.2 kg (168 lb) 09/02/23 78.9 kg (174 lb) 08/11/23 80.8 kg (178 lb 3.2 oz) ROS: Negative except for above PHYSICAL EXAM: General: alert, healthy, and no distress Head: Normocephalic, No masses, lesions, tenderness or abnormalities Back: back symmetric, no curvature, no costovertebral angle tenderness, and positive straight leg raise on the right Extremities: less than 2 second capillary refill, right eg with reduced muscle strength in R hip extension and R knee extension. Negative foot drop ASSESSMENT/Plan Spinal stenosis of lumbar region without neurogenic claudication (Primary) - predniSONE 20 MG Oral Tablet (Deltasone); 1 tab 3 times a day for 3 days, then 1 tab 2 times a day for 3 days, then 1 tab daily for 3 days - MRI L SPINE WO CONTRAST; Future; Expected date: 09/15/2023 - HYDROcodone-Acetaminophen 5-325 MG Oral Tablet; Take 1 Tablet by mouth every 8 hours as needed for Pain, Mild. Nerve sheath tumor - predniSONE 20 MG Oral Tablet (Deltasone); 1 tab 3 times a day for 3 days, then 1 tab 2 times a day for 3 days, then 1 tab daily for 3 days - MRI L SPINE WO CONTRAST; Future; Expected date: 09/15/2023 - HYDROcodone-Acetaminophen 5-325 MG Oral Tablet; Take 1 Tablet by mouth every 8 hours as needed for Pain, Mild. Acute right-sided low back pain with right-sided sciatica - predniSONE 20 MG Oral Tablet (Deltasone); 1 tab 3 times a day for 3 days, then 1 tab 2 times a day for 3 days, then 1 tab daily for 3 days - MRI L SPINE WO CONTRAST; Future; Expected date: 09/15/2023 - Cyclobenzaprine HCl 5 MG Oral Tablet (Flexeril); Take 1 Tablet by mouth 3 times a day as needed for Muscle spasms. - HYDROcodone-Acetaminophen 5-325 MG Oral Tablet; Take 1 Tablet by mouth every 8 hours as needed for Pain, Mild. I spent a total of 30 minutes on the date of service in preparation, delivery, and documentation ofthe care provided to this patient, excluding any time spent on the performance of any procedure or separately billable services. We discussed risks and benefits of starting Vicodin. He understands to use it sparingly. Step up toprednisone. We should be able to get an MRI considering his known nerve sheath tumor and acute weakness associated with his current symptoms. The above was discussed and understanding was expressed. Emerson Zelaya DO * Riya Pantoja RN - 09/08/2023 3:42 PM EDT Finished medrol dose pack and flexril. Pain still there. 10 out of 10. documented in this encounter Plan of Treatment Upcoming Encounters Date Type Department Care Team (Latest Contact Info) Description 09/25/2023 3:15 PM EDT Imaging Radiology [address] [address] 10/06/2023 11:15 AM EDT Hospital Encounter ENDO [facility], Endoscopy Room [facility] [address] [place] [phone] Yobany Thurston MD [address] [place] [address] 10/06/2023 11:15 AM EDT - 10/06/2023 11:45 AM EDT Surgery ENDO [facility], Endoscopy Room [facility] [address] [place] [id number] Yobany Thurston MD [address] [place] [address] ESOPHAGOGASTRODUODENOSCOPY (EGD), FLEXIBLE, TRANSORAL, DIAGNOSTIC 11/22/2023 12:20 PM EDT Office Visit [facility] [place] [address] [facility] [place] [address] Kristofer Jolly III, MD [address] [facility] [place] [address] 08/16/2024 11:30 AM EDT Office Visit Urology, [facility] [address] [place] [address] Arron Nathan MD [facility] [address] [address] Scheduled Orders Name Type Priority Associated Diagnoses Orde r Schedule MRI L SPINE WO CONTRAST Medical Imaging Routine Spinal stenosis 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 Acute right-sided low back pain with right-sided sciatica Expected: 09/15/2023, Expires: 10/08/2024 Scheduled Procedures Name Priority Associated Diagnoses Date/Ti co ESOPHAGOGASTRODUODENOSCOPY ( EGD), FLEXIBLE, TRANSORAL, DIAGNOSTIC Gastroesophageal [...] Spinal stenosis, lumbar region, without neurogenic claudication 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
--- OUTSIDE RECORDS SUMMARY | 2024-03-06 04:28 | External Medical Summary | Summary of Care ---
Author Name Unknown Organization [facility] Address [address] [place] [address] Phone [phone] Care Team Providers Care Disk Sharpener Name Role Phone Rik BELLAMY MD, Kristofer Lawson Primary Care Provider [phone] Reason for Visit * Reason Onset Date Comments Appointment 09/21/2023 Encounter Details Date Type Department Care Team (Late st Contact Info) Description 09/21/2023 Telephone Gastroenterology, [facility] [address] [place], [place] [id number] Services, Scheduling [address] [place] [address] Appointment Allergies Active Allergy Reactions Criticality Noted Date Comments Molds & Smuts 11/07/2015 Nasal congestion/ sneezing Pollen 11/07/2015 Nasal congestion/ sneezing documented as of this encounter (statuses as of 09/21/2023) Medications Medication Sig Dispensed Refills Start Date [...] Active Cyclobenzaprine HCl 5 MG Oral Tablet (Flexeril)Indications :Acute right-sided low back pain with right-sided sciatica Take 1 Tablet by mouth 3 times a day as needed for Muscle spasms. 30 Tablet 09/08/2023 Active HYDROcodone-Acetamino phen 5-325 MG Oral TabletIndications:Spi nal stenosis of lumbar region without neurogenic claudication,Nerve sheath tumor,Acute right-sided low back pain with right-sided sciatica Take 1 Tablet by mouth every 8 hours as needed for Pain, Mild. 15 Tablet 09/08/2023 Active predniSONE 10 MG Oral Tablet (Deltasone)Indication s:Spinal stenosis of lumbar region without neurogenic claudication Take 5 tabs for 2 days, 4 tabs for 2 days, 3 tabs for 2 days, 2 tabs for 2 days 1 tab for 2 days 30 Tablet 09/20/2023 Active Hydrocortisone 2.5 % External CreamIndications:Infl dennys seborrheic keratosis Apply topically to affected area 3 times a day. To affected area. 30 g 5 09/20/2023 Active documented as of this encounter (statuses as of 09/21/2023) Active Problems Problem Noted Date Diagnosed Date BPH with obstruction/lower urinary tract symptom s 05/21/2022 Advance directive on file 11/14/2018 Dyslipidemia, goal LDL below 130 04/15/2009 Overview: Per Lipid Taxonomy. documented as of this encounter (statuses as of 09/21/2023) Resolved Problems Problem Noted Date Diagnosed Date [...] as of this encounter (statuses as of 09/21/2023) Immunizations Name Administration Dates Next Due COVID-19 [...] encounter Miscellaneous Notes * Telephone Encounter - Erica Leyva OSA - 09/21/2023 8:35 AM EDT Patient rescheduled to 03/01/24. Rescheduled due to unplanned travel. * Telephone Encounter - Emma Mason OSA - 09/21/2023 8:10 AM EDT Pt would like to reschedule procedure scheduled with Yobany Thursotn scheduled for 10/06/23, please assist documented in this encounter Plan of Treatment Upcoming Encounters Date Type Department Care Team (Latest Contact Info) Description 09/25/2023 3:15 PM EDT Imaging Radiology [address] [place] [address] 10/04/2023 2:40 PM EDT Office Visit [facility] [address] [address] Emerson Zelaya, DO [address] [place] [address] 11/22/2023 12:20 PM EDT Office Visit [facility] [address] [address] Kristofer Jolly III, MD [address] [facility] [place] [address] 03/01/2024 11:15 AM EDT Hospital Encounter ENDO [facility], Endoscopy Room [facility] [address] [place] [id number] Yobany Thurston MD [address] [place] [address] 03/01/2024 11:15 AM EDT - 03/01/2024 11:45 AM EDT Surgery ENDO [facility], Endoscopy Room [facility] [address] [place] [phone] Yobany Thurston MD [address] [place] [address] ESOPHAGOGASTRODUODENOSCOPY (EGD), FLEXIBLE, TRANSORAL, DIAGNOSTIC 08/16/2024 11:30 AM EDT Office Visit Urology, [facility] [address] [place] [address] Arron Nathan MD [address] [place] [address] [address] Scheduled Procedures Name Priority Associated Diagnoses Date/Ti [...] filedocumented as of this encounter Care Teams Disk Sharpener Relationship Specialty Start Date End Date Kristofer Jolly III, MD [address] [place] [address] PCP - General 12/16/1995 documented as of this encounter
--- OUTSIDE RECORDS SUMMARY | 2024-03-06 04:28 | External Medical Summary | Summary of Care ---
Author Name Unknown Organization [facility] Address [address] [place] [address] Phone [phone] Care Team Providers Care Loading Unit Operator Crimping Name Role Phone Rik BELLAMY MD, Kristofer Lawson Primary Care Provider [phone] Reason for Referral * Evaluate & Treat - Unlimited Visits (Within 10 days (routine)) - Authorized Specialty Diagnoses / Procedures Referred By Kit yañez Referred To Contact Neuro/Ortho Surgery - Spine. / Neurological Surgery Diagnoses Lumbosacral radiculopathy at L5 Lumbar disc herniation Emerson Zelaya DO [address] [place] [address] Referral ID Status Reason Start Date Expiration Date Visits Requested Visits Authorized [id number] Authorized Specialty Services Required 10/04/2023 999 [id number] Question Answer Referral Priority Within 10 days (routine) Where should this appointment be scheduled? External Select spine region: Back - Thoracic/Lumbar Do you have any recent complete loss of bladder or bowel function? No * Evaluate & Treat - Unlimited Visits (Within 10 days (routine)) - Authorized Specialty Diagnoses / Procedures Referred By Kit yañez Referred To Contact Pain Management / Pain Medicine Diagnoses Lumbosacral radiculopathy at L5 Lumbar disc herniation Emerson Zelaya DO [address] [place] [address] Referral ID Status Reason Start Date Expiration Date Visits Requested Visits Authorized [id number] Authorized Specialty Services Required 10/04/2023 [id number] Question Answer Referral Priority Within 10 days (routine) Where should this appointment be scheduled? [facility] Reason for referral? Interventional Pain Management - (Injection) What condition is the patient being referred for? Lumbar Radiculopathy What is the preferred location to have this test performed? [facility] Comments Patient Name: Michael Porter Date of : 1945 Department Phone Number: MRI or CT (if unable to have a MRI) is recommended if any of the following apply: 1. Patient has neck or back pain with radiation to extremities. A previous MRI will be accepted if symptoms unchanged since prior MRI. 2. Spinal surgery since last MRI. If yes, order a MRI with and without contrast. 3. Hx or ongoing cancer treatment. Patient will need spine x-ray (Ap/Lat) for axial neck or back pain if not done previously. Fax No. [facility] [phone] or contact front end mechanic [phone] Fax No. [facility] [phone] or contact front end mechanic [phone] Fax No. [facility] [phone] or contact front end mechanic [phone] Reason for Visit * Reason Comments Follow Up Pt has sciatica, is following up for treatment, prednisone helped, pain is still present but significantly reduced. Encounter Details Date Type Department Care Team (Latest Contact Info) Description 10/04/2023 2:40 PM EDT Office Visit [facility] [address] [place] [address] Emerson Zelaya DO [address] [facility] [place] [address] Lumbosacral radiculopathy at L5*; Acute right-sided low back pain with right-sided sciatica; Lumbar disc herniation Allergies Active Allergy Reactions Criticality Noted Date Comments Molds & Smuts 11/07/2015 Nasal congestion/ sneezing Pollen 11/07/2015 Nasal congestion/ sneezing documented as of this encounter (statuses as of 10/08/2023) Medications Medication Sig Dispensed Refills Start Date [...] by mouth. Active Hydrocortisone 2.5 % External CreamIndications:I nflamed seborrheic keratosis Apply topically to affected area 3 times a day. To affected area. 30 g 5 09/20/2023 Active Cyclobenzaprine HCl 5 MG Oral Tablet (Flexeril)Indicati ons:Acute right-sided low back pain with right-sided sciatica Take 1 Tablet by mouth 3 times a day as needed for Muscle spasms. 30 Tablet 5 10/04/2023 Active Cyclobenzaprine HCl 5 MG Oral Tablet (Flexeril)Indicati ons:Acute right-sided low back pain with right-sided sciatica Take 1 Tablet by mouth 3 times a day as needed for Muscle spasms. 30 Tablet 09/08/2023 10/04/2023 Discontinue d(Refill) HYDROcodone-Acetam inophen 5-325 MG Oral TabletIndications: Spinal stenosis of lumbar region without neurogenic claudication,Nerve sheath tumor,Acute right-sided low back pain with right-sided sciatica Take 1 Tablet by mouth every 8 hours as needed for Pain, Mild. 15 Tablet 09/08/2023 10/04/2023 Discontinue d(Medicatio n List Clean Up) predniSONE 10 MG Oral Tablet (Deltasone)Indicat ions:Spinal stenosis of lumbar region without neurogenic claudication Take 5 tabs for 2 days, 4 tabs for 2 days, 3 tabs for 2 days, 2 tabs for 2 days 1 tab for 2 days 30 Tablet 09/20/2023 10/04/2023 Discontinue d(End of Procedure) documented as of this encounter (statuses as of 10/08/2023) Active Problems Problem Noted Date Diagnosed Date BPH with obstruction/lower urinary tract symptom s 05/21/2022 Advance directive on file 11/14/2018 Dyslipidemia, goal LDL below 130 04/15/2009 Overview: Per Lipid Taxonomy. documented as of this encounter (statuses as of 10/08/2023) Resolved Problems Problem Noted Date Diagnosed Date [...] as of this encounter (statuses as of 10/08/2023) Immunizations Name Administration Dates Next Due COVID-19 mRNA, LNP-s, No Pre serve, 2-Dose Series (RoughHands) 01/28/2021,07/10/2020,06/14/2020 COVID-19, LNP-s, No Preserve , Levar-sucrose, [...] Date Smoking Tobacco: Never Smokeless Tobacco: Never Tobacco Cessation:Counseling Given: Not Answered Alcohol Use Standard Drinks/Week Comments Never 0 [...] Sign Reading Time Taken Comments Blood Pressure 128/76 10/04/2023 2:45 PM EDT Pulse 72 10/04/2023 2:45 PM EDT Temperature 36.8 C (98.3 F) 10/04/2023 2:45 PM ED T Respiratory Rate - - Oxygen Saturation 96% 10/04/2023 2:45 PM EDT Inhaled Oxygen Concentration - - Weight 76.4 kg (168 lb 6.4 oz) 10/04/2023 2:45 P M EDT Height 179.1 cm (5' 10.5") 10/04/2023 2:45 PM ED T Body Mass Index 23.82 10/04/2023 2:45 PM EDT documented in this encounter Progress Notes * Emerson Zelaya, - 10/04/2023 3:02 PM EDT Subjective: Michael Porter is a 78 year old male. Chief Complaint Patient presents with Follow Up Pt has sciatica, is following up for treatment, prednisone helped, pain is still present but significantly reduced. HPI: Pt with improving pain but it is slow. Pain is worse at night and sometimes keeps him up. Prednisone did help a lot. Once he stopped it his pain came back but is not as bad. He is taking Aleve as needed. He finished the muscle relaxer. It was helping before. He is limited in what he can do because of his back and leg. Getting some calf spasms. PMHx, meds, and allergies reviewed Patient Active [...] 100 MCG Oral Tablet Take by mouth. Cyclobenzaprine HCl 5 MG Oral Tablet (Flexeril) Take 1 Tablet by mouth 3 times a day as needed for Muscle spasms. 30 Tablet 0 Hydrocortisone 2.5 % External Cream Apply topically to affected area 3 times a day. To affected area. 30 g 5 No current facility-administered medications for this visit. Review of patient's allergies indicates: Allergen Reactions Molds & Smuts Nasal congestion/ sneezing Pollen Nasal congestion/ sneezing OBJECTIVE: BP 128/76 | Pulse 72 | Temp 36.8 C (98.3 F) (Tympanic) | Ht 1.791 m (5' 10.5") | Wt 76.4 kg (168 lb 6.4 oz) | SpO2 96% | BMI 23.82 kg/m | BSA 1.95 m Estimated body mass index is 23.82 kg/m as calculated from the following: Height as of this encounter: 1.791 m (5' 10.5"). Weight as of this encounter: 76.4 kg (168 lb 6.4 oz). BP Readings from Last 3 Encounters: 10/04/23 128/76 09/20/23 130/70 09/08/23 127/76 Wt Readings from Last 3 Encounters: 10/04/23 76.4 kg (168 lb 6.4 oz) 09/20/23 76.3 kg (168 lb 3.2 oz) 09/08/23 76.2 kg (168 lb) ROS: Negative except for above PHYSICAL EXAM: General: alert, healthy, and no distress Head: Normocephalic, No masses, lesions, tenderness or abnormalities BAck: Increased ROM from prior exam ASSESSMENT/Plan Lumbosacral radiculopathy at L5 (Primary) - PAIN MEDICINE REFERRAL OP - SPINE SURGERY REFERRAL OP Acute right-sided low back pain with right-sided sciatica - Cyclobenzaprine HCl 5 MG Oral Tablet (Flexeril); Take 1 Tablet by mouth 3 times a day as needed for Muscle spasms. Lumbar disc herniation - PAIN MEDICINE REFERRAL OP - SPINE SURGERY REFERRAL OP We discussed why continuing prednisone as a regular med was dangerous. Will use aleve and flexeril as needed and see specialists with results of MRI. The above was discussed and understanding was expressed. Emerson Zelaya DO documented in this encounter Nursing Notes * Emma Grullon, MED ASSIST - 10/04/2023 2:48 PM EDT Chief Complaint Patient presents with Follow Up Pt has sciatica, is following up for treatment, prednisone helped, pain is still present but significantly reduced. documented in this encounter Plan of Treatment Upcoming Encounters Date Type Department Care Team (Latest Contact Info) Description 11/10/2023 12:20 PM EDT Office Visit Interventional Pain Center, [facility] [address] [facility] [place] [address] Herminia Castillo MD [address] [place] [phone] 11/22/2023 12:20 PM EDT Office Visit Family Practice [facility] [address] [facility] [place] [address] Rik IIIKristofer MD [address] [facility] [place] [address] 03/01/2024 11:15 AM EDT Hospital Encounter ENDO [facility], Endoscopy Room [facility] [address] [place] [id number] Yobany Thurston MD [address] [place] [address] 03/01/2024 11:15 AM EDT - 03/01/2024 11:45 AM EDT Surgery [facility] Room [facility] [address] [place] [phone] Yobany Thurston MD [address] [place] [address] ESOPHAGOGASTRODUODENOSCOPY (EGD), FLEXIBLE, TRANSORAL, DIAGNOSTIC 08/16/2024 11:30 AM EDT Office Visit Urology, [facility] [address] [place], [place] [address] Arron Nathan MD [address] [facility] [address] [place] [id number] Scheduled Procedures Name Priority Associated Diagnoses Date/Ti me ESOPHAGOGASTRODUODENOSCOPY ( EGD), FLEXIBLE, TRANSORAL, DIAGNOSTIC Gastroesophageal reflux 03/01/2024 11:15 AM EDT COLONOSCOPY FLEXIBLE PROXIMA L DIAGNOSTIC Recall History of colonic polyps Scheduled Referrals Name Type Priority Associated Diagnoses Orde r Schedule PAIN MEDICINE REFERRAL OP Referral Within 10 days (routine) Lumbosacral radiculopathy at L5 Lumbar disc herniation Ordered: 10/04/2023 SPINE SURGERY REFERRAL OP Referral Within 10 days (routine) Lumbosacral radiculopathy at L5 Lumbar disc herniation Ordered: 10/04/2023 Health Maintenance Due Date Last Done Comments [...] as of this encounter Visit Diagnoses Diagnosis Lumbosacral radiculopathy at L5- Primary Thoracic or lumbosacral neuritis or radiculitis, unspecified Acute right-sided low back pain with right-sided sciatica Lumbar disc herniation Displacement of lumbar intervertebral disc without myelopathy Gastroesophageal reflux Esophageal reflux documented in this encounter Care Teams Loading Unit Operator Crimping Relationship Specialty Start Date End Date Kristofer Jolly III, MD [address] [place] [address] PCP - General 12/16/1995 documented as of this encounter
--- NOTE | 2024-03-06 04:59 | Emergency Department Note ---
Impression & Plan Acute lower gastrointestinal bleeding, Diverticulitis ED Provider Note NAME: CONNOR AVILA AGE: 78 SEX: M : 1945 ARRIVES VIA: Walk-In INFORMANT: Patient ED PROVIDER(S): Osbaldo Armijo MD CHIEF COMPLAINT: Red blood per rectum. PLAN: Disposition: Admit MEDICAL DECISION MAKING: The patient is a pleasant 78-year-old gentleman with a past medical history of gastric and colonic polyps who presents to the emergency department via walk-in accompanied by his for evaluation of acute onset lower GI bleeding where he reports the sudden urge to move his bowels last night/early this morning and subsequently passed large amount of blood that "filled the toilet". He reports this was the first episode of this sort. He reports he did have an endoscopy performed through [facility] on Wednesday and since then has been doing fine moving his bowels daily and they have been normal and brown. He did have gastric polyps removed. He reports last colonoscopy was several years ago and he had benign polyps removed. He otherwise denies fevers, chills, cough congestion, chest pain, shortness of breath, lightheadedness. On evaluation the patient is no distress, afebrile with stable vital signs. He has a benign abdomen. Rectal exam demonstrates gross red blood without overt hemorrhage. There is no melena. This test positive on Hemoccult card. EKG without overt acute ischemia. WBC, hemoglobin and platelets within normal limits. Chemistry without metabolic acidosis. LFTs unremarkable. CT of the abdomen pelvis was performed with formal report pending. Per my preliminary independent or potation possible liquid contents within the rectum but no overt hyperdense area/blush to set just active hemorrhage. Given continued red blood per rectum on exam which is suspicious for possible diverticular bleed patient does agree plan for admission for further monitoring. Case was discussed with Dr. Garcia, [facility] hospitalist who will evaluate the patient for admission. CT report finalized and describes possible early diverticulitis. Further management per admitting team. Triage Nursing notes reviewed and agree them. Prior/external medical records reviewed Vital Signs: reviewed Differential diagnosis: Diverticulosis, AVM, coagulopathy, colitis, inflammatory bowel disease, malignancy, Bell-Ellis tear, esophagitis, peptic ulcer disease, variceal bleed, gastritis, epistaxis, fissure, hemorrhoids, as well as other pathologies. ER treatment provided: See below. Diagnostics interpreted by me: ECG: Sinus rhythm with PACs, 62 bpm, no ectopy, no overt ST elevation or depression, QTc 428, QRS 94. Cardiac Monitoring: An order for continuous cardiac monitoring was placed and demonstrated Sinus rhythm with PACs, 62 bpm, no ectopy. Laboratory studies: See below Imaging studies: See below Consultation(s): Case was discussed with Dr. Garcia, [facility] hospitalist who will evaluate the patient for admission. HPI: The patient is a pleasant 78-year-old gentleman with a past medical history of gastric and colonic polyps who presents to the emergency department via walk- in accompanied by his for evaluation of acute onset lower GI bleeding where he reports the sudden urge to move his bowels last night/early this morning and subsequently passed large amount of blood that "filled the toilet". He reports this was the first episode of this sort. He reports he did have an endoscopy performed through [facility] on Wednesday and since then has been doing fine moving his bowels daily and they have been normal and brown. He did have gastric polyps removed. He reports last colonoscopy was several years ago and he had benign polyps removed. He otherwise denies fevers, chills, cough congestion, chest pain, shortness of breath, lightheadedness. ROS: See above HPI for pertinent positives & negatives. A total of 10 systems reviewed and were otherwise negative. VITALS:See Below PHYSICAL EXAMINATION: GENERAL: Awake, alert, well-appearing, in no distress HENT: Normocephalic, atraumatic. Oropharynx unremarkable. EYES: Normal conjunctiva. Sclera non-icteric. NECK: Supple. No nuchal rigidity. FROM. No JVD. RESPIRATORY: Clear to auscultation. CARDIAC: Regular rate, normal rhythm. Extremities warm and well perfused. Pulses equal. ABDOMEN: Soft, non-distended. No tenderness to palpation. No rebound or guarding. No masses. RECTAL: Gross red blood without overt hemorrhage. There is no melena. No inflamed/thrombosed or bleeding hemorrhoids. MUSCULOSKELETAL: Chest examination reveals no tenderness. The back is symmetrical on inspection without obvious abnormality. There is no CVA tenderness to palpation. No joint edema. LOWER EXTREMITIES: Calves are equal size bilaterally and non-tender. No edema. No discoloration. NEURO: Normal sensorium. No sensory or motor deficits noted. SKIN: No rash or jaundice noted. Osbaldo Armijo MD Past Med/Surg History Problem List (Updated 03/06/24 @ 12:02 by Osbaldo Armijo MD) Diverticulitis (Acute) Acute lower gastrointestinal bleeding (Acute) Medical History Colonic polyp Gastric polyps Social History Smoking Status: Never smoker Hx Alcohol Use: No Hx Substance Use: No Preferred Language: Portuguese Communication Ability: Effective Microstrategy Reports Developer Required: No Beliefs That Will Affect Care: None Current Living Situation: Spouse Other Information That Helps Us Care for You: No Feels Safe at Home: Yes Safety Concerns: Feels Safe At This Time Assistive Devices: Glasses Allergies Allergies Allergy/AdvReac Type Severity Reaction Status Date / Time No Known Drug Allergies Allergy Unknown . Verified 11/20/15 09:22 pollen extracts Allergy Unknown CONGESTION Verified 11/25/15 09:24 crab AdvReac Unknown ITCHING Verified 11/25/15 09:24 latex AdvReac Unknown ITCHING Verified 11/25/15 09:24 AND RASH Home Meds Home Medications Medication Instructions Recorded Confirmed multivitamin (Daily Multi-Vitamin 1 tab PO DAILY 03/06/24 03/06/24 tablet) naproxen 250 mg tablet 250 mg PO BID PRN Pain 03/06/24 03/06/24 Results & Data (ED) Vital Signs Vital Signs - 24 hr 03/06/24 04:29 03/06/24 04:41 03/06/24 04:42 Temperature 36.7 C Temperature Source Temporal Artery Scan Pulse Rate 75 65 69 Pulse Rate from SpO2 Sensor 70 Pulse Rhythm Respiratory Rate 18 20 Respiratory Effort / Characteristics Non-Labored Spontaneous Respiratory Depth Normal Respiratory Pattern Regular Blood Pressure 116/74 130/87 Blood Pressure Mean 88 101 Blood Pressure Position Sitting Pulse Oximetry 98 98 Oxygen Delivery Method Room Air Sepsis Recent Fever Within 48 Hours No Sepsis New/Unexplained Change in Mental Status N/A Sepsis Action Taken by Nursing No Action Required 03/06/24 04:54 03/06/24 05:00 03/06/24 05:21 Temperature Temperature Source Pulse Rate 66 69 66 Pulse Rate from SpO2 Sensor 67 69 Pulse Rhythm Regular Respiratory Rate 22 19 16 Respiratory Effort / Characteristics Respiratory Depth Respiratory Pattern Blood Pressure 127/81 Blood Pressure Mean 96 Blood Pressure Position Pulse Oximetry 97 98 98 Oxygen Delivery Method Room Air Sepsis Recent Fever Within 48 Hours Sepsis New/Unexplained Change in Mental Status Sepsis Action Taken by Nursing 03/06/24 05:45 03/06/24 05:54 03/06/24 06:09 Temperature Temperature Source Pulse Rate 67 67 74 Pulse Rate from SpO2 Sensor 68 67 69 Pulse Rhythm Respiratory Rate 19 15 17 Respiratory Effort / Characteristics Respiratory Depth Respiratory Pattern Blood Pressure Blood Pressure Mean Blood Pressure Position Pulse Oximetry 97 99 98 Oxygen Delivery Method Sepsis Recent Fever Within 48 Hours Sepsis New/Unexplained Change in Mental Status Sepsis Action Taken by Nursing 03/06/24 06:21 Temperature Temperature Source Pulse Rate 65 Pulse Rate from SpO2 Sensor 67 Pulse Rhythm Respiratory Rate 20 Respiratory Effort / Characteristics Respiratory Depth Respiratory Pattern Blood Pressure 156/93 H Blood Pressure Mean 114 Blood Pressure Position Pulse Oximetry 98 Oxygen Delivery Method Sepsis Recent Fever Within 48 Hours Sepsis New/Unexplained Change in Mental Status Sepsis Action Taken by Nursing Laboratory Data Attestation: I reviewed the patient's lab results. 03/06/24 07:54 03/06/24 04:56 Lab Results 03/06/24 03/06/24 03/06/24 Range/Units 04:56 05:52 06:10 WBC 9.08 (4.8-10.8) K/ul RBC 4.50 L (4.70-6.10) M/uL Hgb 14.0 (14.0-18.0) g/dl Hct 41.5 L (42.0-52.0) % MCV 92.2 (80.0-100.0) fL MCH 31.1 (25.0-34.0) pg MCHC 33.7 (32.0-36.0) g/dL RDW Std Deviation 43.2 (36.4-46.3) fL RDW Coeff of Antonella 12.9 (11.5-14.5) % Plt Count 196 (130-400) K/uL MPV 9.7 (9.4-12.4) fL Immature Gran % (Auto) 0.3 % Neut % (Auto) 65.0 % Lymph % (Auto) 26.1 % [place] % (Auto) 5.7 % Eos % (Auto) 2.2 % Baso % (Auto) 0.7 % Neut # (Auto) 5.90 (1.40-6.50) K/uL Lymph # (Auto) 2.37 (1.20-3.40) K/uL [place] # (Auto) 0.52 (0.11-0.59) K/uL Eos # (Auto) 0.20 (0.00-0.50) K/uL Baso # (Auto) 0.06 (0.00-0.20) K/uL Immature Gran # (Auto) 0.03 (0.01-0.20) K/uL PT 10.7 (9.0-12.0) Seconds INR 1.0 (0.9-1.1) APTT 25 (21-31) Seconds PTT Ratio 0.9 Sodium 142 (136-145) mmol/L Potassium 3.7 (3.5-5.1) mmol/L Chloride 108 H (98-107) mmol/L Carbon Dioxide 29 (21-32) mmol/L Anion Gap 5 (3-11) BUN 27 H (6-23) mg/dl Creatinine 1.02 (0.6-1.4) mg/dl Est Cr Clr Drug Dosing 63.6 ml/min eGFR 75.23 BUN/Creatinine Ratio 26.5 H (10-20) Glucose 110 H (70-99(Fasting)) mg/dl Calcium 9.3 (8.6-10.3) mg/dl Magnesium 2.0 (1.7-2.4) mg/dl Total Bilirubin 0.6 (0.2-1.0) mg/dl AST 14 (13-39) U/L ALT 13 (7-52) U/L Alkaline Phosphatase 45 (34-104) U/L Total Protein 6.7 (6.0-8.3) gm/dl Albumin 4.0 (3.4-5.0) gm/dl Globulin 2.7 (2.5-4.0) gm/dl Albumin/Globulin Ratio 1.5 (0.9-2) POC Stool Occult Blood Positive A (Negative) Blood Type A Positive Antibody Screen NEGATIVE Administered Medications Piperacillin Sod/Tazobactam Sod (Zosyn) 4.5 gm in 100 mls @ 25 mls/hr IV Q8H ELENA; Protocol Stop: 03/16/24 11:59 Last Admin: 03/06/24 11:33 Dose: 25 mls/hr Documented By: RIYA Ketoconazole (Ketoconazole 2% Cr 15 Gm Tube) 1 appln EXT BID ELENA Stop: 03/16/24 08:59 Last Admin: 03/06/24 10:00 Dose: 1 appln Documented By: RIYA Multivitamins (Multivitamin Tab) 1 tab PO DAILY ELENA Stop: 04/05/24 09:44 Last Admin: 03/06/24 10:00 Dose: 1 tab Documented By: RIYA Discontinued Medications Sodium Chloride (Nss) 500 mls @ 999 mls/hr IV .Q31M ONE Stop: 03/06/24 05:28 Last Infusion: 03/06/24 07:53 Dose: Infused Documented By: Admin: 03/06/24 05:29 Dose: 999 mls/hr Documented By: CHRISTINE Ampicillin Sodium/Sulbactam Sodium (Unasyn) 3,000 mg in 100 mls @ 200 mls/hr IV NOW STA Stop: 03/06/24 07:05 Last Admin: 03/06/24 07:16 Dose: Not Given Documented By: PAULA Piperacillin Sod/Tazobactam Sod (Zosyn) 4.5 gm in 100 mls @ 200 mls/hr IV NOW STA; Protocol Stop: 03/06/24 07:24 Last Infusion: 03/06/24 08:01 Dose: Infused Documented By: Admin: 03/06/24 07:25 Dose: 200 mls/hr Documented By: MEGAN Ioversol (Optiray 320 100ml) 100 ml IV ONCE ONE Stop: 03/06/24 05:13 Last Admin: 03/06/24 05:12 Dose: 93 ml Documented By: LB Imaging Data Radiologist's Impression: Abdomen/Pelvis CT 03/06/24 04:58 EXAM: CT abd pelvis IV con only CLINICAL HISTORY: rectal bleed, 93 ml optiray 320, appendix-present TECHNIQUE: Contrast-enhanced CT of the abdomen and pelvis was performed, with the following protocol: axial images with reconstructed coronal and sagittal images. One of the following dose reduction techniques was utilized for this exam: Automated exposure control, adjustment of the mA and/or kV according to patient size, and use of iterative reconstruction. COMPARISON: None. FINDINGS: Abdomen: Liver: Normal in size, shape, and density. Multiple simple cysts were noted with the largest measuring 2cm in the right lobe. No focal lesions,or masses were identified. Prominent central intrahepatic biliary channels. Clinical and lab correlation is recommended. Gallbladder and Biliary System: Gallbladder is distended with suggestion of subtle mucosal enhancement. No discrete radiopaque calculus is seen. No wall thickening, pericholecystic fluid, or gallstones were identified. The common bile duct is normal in caliber without dilation. Pancreas: Pancreatic head, body, and tail are visualized and appear normal in size and density. No pancreatic masses or calcifications were noted. The pancreatic duct is not dilated. Spleen: Normal in size, shape, and density. No splenic lesions or masses were identified. Kidneys and Adrenal Glands: Both kidneys are normal in size, shape, and position. Cortical thickness is within normal limits. No renal calculi or hydronephrosis. A 1cm simple renal cyst was noted in the left kidney upper pole. Nonspecific thickening of the bilateral adrenal gland is likely a benign hyperplasia. Pelvis: Urinary Bladder: Urinary bladder is thick-walled. This may be secondary to underdistention/cystitis. Prostate: Enlarged measuring about 125cc. Foci of dystrophic calcification were noted. Seminal Vesicles: Normal in size and appearance. No abnormalities noted. Rectum and Sigmoid Colon: Normal wall thickness and no evidence of mass. Peritoneal and Retroperitoneal Structures: No free fluid or abnormal fluid collections were identified within the abdomen or pelvis. No lymphadenopathy was noted. Bowel: Colonic diverticuli in the region of the hepatic flexure with subtle surrounding fat stranding. The possibility of bowel thickening cannot be adequately commented on due to underdistention. Findings may be seen in early/developing diverticulitis. Clinical correlation and follow-up are recommended. The rest visualized bowel loops are normal in caliber and appearance. No evidence of bowel obstruction. Appendix is normal. The lower thorax Bilateral basal atelectasis bands were noted Bones and Soft Tissues: No fractures or abnormal masses were identified. IMPRESSION: In order to exclude active gastrointestinal bleeding, CT with GI bleeding protocol is recommended for further evaluation. Colonic diverticuli in the region of the hepatic flexure with subtle surrounding fat stranding. The possibility of bowel thickening cannot be adequately commented on due to underdistention. Findings may be seen in early/developing diverticulitis. Clinical correlation and follow-up are recommended. Prominent central intrahepatic biliary channels. CBD is normal in diameter. Clinical and lab correlation is recommended. Gallbladder is distended with suggestion of subtle mucosal enhancement Sonogprahic correlation may be helpful. Multiple simple hepatic cysts were noted with the largest measuring 2cm in the right liver lobe. Nonspecific thickening of the bilateral adrenal gland possibly benign hyperplasia. Enlarged prostate and foci of dystrophic calcification were noted. Urinary bladder is thick-walled. This may be secondary to underdistention/cystitis. Need for US and lab correlation. Bilateral basal atelectasis bands. [facility] was called at [phone] at 5:27 AM BOILER ATTENDANT on 03/06/2024 and Nurse Buck was informed regarding the presence of Important Medical Findings in the report. Electronically signed by Naila Chavez 03-06-2024 06:32 AM Discharge Plan Visit Data Chief Complaint: Rectal Bleed Stated Complaint: BLEEDING ED Provider: Osbaldo Armijo Discharge Problem: Acute lower gastrointestinal bleeding, Diverticulitis Patient Disposition: Admitted As Inpatient Discharge Instructions Interventions: ED Discharge Assessment Last Done: 03/06/24 09:22
[2024-03-06] MEDS: OPTIRAY 320 100ml IV ONE (05:12)
[2024-03-06 05:15] LABS: Basophils # (auto) 0.06 K/uL (0.00-0.20); Basophils % (auto) 0.7 %; Eosinophils % (auto) 2.2 %; Hematocrit (blood only) 41.5 % (42.0-52.0); Immature Granulocytes # (auto) 0.03 K/uL (0.01-0.20); Immature Granulocytes % (auto) 0.3 %; Lymphocytes # (auto) 2.37 K/uL (1.20-3.40); Lymphocytes % (auto) 26.1 %; Mean Corpuscular Hemoglobin 31.1 pg (25.0-34.0); Mean Corpuscular Hgb Conc 33.7 g/dL (32.0-36.0); Mean Corpuscular Volume 92.2 fL (80.0-100.0); Mean Platelet Volume 9.7 fL (9.4-12.4); Monocytes # (auto) 0.52 K/uL (0.11-0.59); Monocytes % (auto) 5.7 %; Platelet Count 196 K/uL (130-400); RDW Coefficient of Variation 12.9 % (11.5-14.5); RDW Standard Deviation 43.2 fL (36.4-46.3); White Blood Count 9.08 K/ul (4.8-10.8)
[2024-03-06] MEDS: SODIUM CHLORIDE 0.9% 500 ML IV ONE (05:29)
[2024-03-06 05:32] LABS: Albumin Globulin Ratio 1.5 (0.9-2); BUN Creatinine Ratio 26.5 (10-20); Bilirubin,Total 0.6 mg/dl (0.2-1.0); Calcium 9.3 mg/dl (8.6-10.3); Creatinine Clr Calc Pharmacy 63.6 ml/min; Globulin 2.7 gm/dl (2.5-4.0); Potassium 3.7 mmol/L (3.5-5.1); Total Protein 6.7 gm/dl (6.0-8.3)
[2024-03-06 05:45] LABS: Partial Thromboplastin Ratio 0.9; Partial Thromboplastin Time 25 Seconds (21-31); Prothrombin Time 10.7 Seconds (9.0-12.0)
--- NOTE | 2024-03-06 06:12 | History & Physical Report ---
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 SCDs re: GI bleed Full code Text document was generated using [employer] voice recognition software. It may contain grammatical or spelling errors. Kindly contact undersigned for clarification of any documentation item in question. History of Present Illness Chief Complaint: Rectal bleed Primary Care Provider: Kristofer Jolly MD History obtained from patient, family, and records. Medical history significant for hyperlipidemia, Webb's esophagus, diverticulosis, hemorrhoids, colonic polyps, BPH, mood disorder, urolithiasis. Last confinement 1999 under ENT service for posterior epistaxis status post endoscopic cautery and posterior packing. Patient underwent outpatient EGD at outpatient [facility] facility few days ago as follow-up study for Webb's esophagus. EGD showed normal esophagus, single gastric polyp status post resection and gastritis. Normal duodenum. Repeat upper endoscopy contingent on pathology results as per endoscopy note. This morning, patient had bloody BM with mild achy lower abdominal pain. No nausea, no emesis, no fever, no chills. No recent antibiotic Rx or out-of-town travel. No headache, no chest pain, no SOB. OTC NSAID intake for chronic hip pain yesterday. Patient brought to ER by for evaluation. Medical History as above Colonoscopy 2020 showed diverticulosis, internal and external hemorrhoids, adenomatous polyps Surgical History : Cataract surgery, septoplasty, tonsillectomy, ulnar nerve revision Family History : DM Personal/Social history : Non-smoker, no EtOH intake, retired synthetic chemist Allergies Allergy/AdvReac Type Severity Reaction Status Date / Time No Known Drug Allergies Allergy Unknown . Verified 11/20/15 09:22 pollen extracts Allergy Unknown CONGESTION Verified 11/25/15 09:24 crab AdvReac Unknown ITCHING Verified 11/25/15 09:24 latex AdvReac Unknown ITCHING Verified 11/25/15 09:24 AND RASH Home Medications Medication Instructions Recorded Confirmed Type multivitamin (Daily Multi-Vitamin 1 tab PO DAILY 03/06/24 03/06/24 History tablet) naproxen 250 mg tablet 250 mg PO BID PRN Pain 03/06/24 03/06/24 History Past Med/Surg History Problem List (Updated 03/06/24 @ 06:12 by Osbaldo Armijo MD) Acute lower gastrointestinal bleeding (Acute) Medical History (Updated 03/06/24 @ 06:12 by Osbaldo Armijo MD) Colonic polyp Gastric polyps Social History Smoking Status: Never smoker Hx Alcohol Use: No Hx Substance Use: No Preferred Language: Brazilian Communication Ability: Effective Strategy Consultant Required: No Beliefs That Will Affect Care: None Current Living Situation: Spouse Other Information That Helps Us Care for You: No Feels Safe at Home: Yes Safety Concerns: Feels Safe At This Time Assistive Devices: Glasses Review of Systems Review of Systems: As per HPI, patient complaining of fungal rash left leg which comes and goes, all other systems reviewed and negative Physical Exam 2 Physical Exam: GENERAL: Comfortable, pleasant, no respiratory distress SKIN: Normal color, warm, scaly patchy lesions with central clearing left lower extremity HEENT: Partial alopecia, bespectacled, pink palpebral conjunctivae, no ptosis, dry buccal mucosa NECK : Supple, no tenderness CHEST : CTA, no tenderness HEART : RRR, no obvious murmurs ABDOMEN: Some distention, nontender EXTREMITIES : No LE swelling/tenderness, no other conspicuous deformities noted NEUROLOGIC : Coherent, no facial asymmetry, no other gross focality Results & Data Results & Data Vital Signs (Past 12 Hours) Vital Signs Temp Pulse Resp BP Pulse Ox O2 Del Method 03/06/24 05:21 66 16 98 Room Air 03/06/24 05:00 69 19 127/81 98 03/06/24 04:54 66 22 97 03/06/24 04:42 69 20 130/87 98 03/06/24 04:41 65 03/06/24 04:29 36.7 C 75 18 116/74 98 Room Air Laboratory Results Laboratory Results WBC 9.08 K/ul (4.8-10.8) 03/06/24 04:56 RBC 4.50 M/uL (4.70-6.10) L 03/06/24 04:56 Hgb 14.0 g/dl (14.0-18.0) 03/06/24 04:56 Hct 41.5 % (42.0-52.0) L 03/06/24 04:56 MCV 92.2 fL (80.0-100.0) 03/06/24 04:56 MCH 31.1 pg (25.0-34.0) 03/06/24 04:56 MCHC 33.7 g/dL (32.0-36.0) 03/06/24 04:56 RDW Std Deviation 43.2 fL (36.4-46.3) 03/06/24 04:56 RDW Coeff of Antonella 12.9 % (11.5-14.5) 03/06/24 04:56 Plt Count 196 K/uL (130-400) 03/06/24 04:56 MPV 9.7 fL (9.4-12.4) 03/06/24 04:56 Immature Gran % (Auto) 0.3 % 03/06/24 04:56 Neut % (Auto) 65.0 % 03/06/24 04:56 Lymph % (Auto) 26.1 % 03/06/24 04:56 [place] % (Auto) 5.7 % 03/06/24 04:56 Eos % (Auto) 2.2 % 03/06/24 04:56 Baso % (Auto) 0.7 % 03/06/24 04:56 Neut # (Auto) 5.90 K/uL (1.40-6.50) 03/06/24 04:56 Lymph # (Auto) 2.37 K/uL (1.20-3.40) 03/06/24 04:56 [place] # (Auto) 0.52 K/uL (0.11-0.59) 03/06/24 04:56 Eos # (Auto) 0.20 K/uL (0.00-0.50) 03/06/24 04:56 Baso # (Auto) 0.06 K/uL (0.00-0.20) 03/06/24 04:56 Immature Gran # (Auto) 0.03 K/uL (0.01-0.20) 03/06/24 04:56 PT 10.7 Seconds (9.0-12.0) 03/06/24 04:56 INR 1.0 (0.9-1.1) 03/06/24 04:56 APTT 25 Seconds (21-31) 03/06/24 04:56 PTT Ratio 0.9 03/06/24 04:56 Sodium 142 mmol/L (136-145) 03/06/24 04:56 Potassium 3.7 mmol/L (3.5-5.1) 03/06/24 04:56 Chloride 108 mmol/L (98-107) H 03/06/24 04:56 Carbon Dioxide 29 mmol/L (21-32) 03/06/24 04:56 Anion Gap 5 (3-11) 03/06/24 04:56 BUN 27 mg/dl (6-23) H 03/06/24 04:56 Creatinine 1.02 mg/dl (0.6-1.4) 03/06/24 04:56 Est Cr Clr Drug Dosing 63.6 ml/min 03/06/24 04:56 eGFR 75.23 03/06/24 04:56 BUN/Creatinine Ratio 26.5 (10-20) H 03/06/24 04:56 Glucose 110 mg/dl (70-99(Fasting)) H 03/06/24 04:56 Calcium 9.3 mg/dl (8.6-10.3) 03/06/24 04:56 Total Bilirubin 0.6 mg/dl (0.2-1.0) 03/06/24 04:56 AST 14 U/L (13-39) 03/06/24 04:56 ALT 13 U/L (7-52) 03/06/24 04:56 Alkaline Phosphatase 45 U/L (34-104) 03/06/24 04:56 Total Protein 6.7 gm/dl (6.0-8.3) 03/06/24 04:56 Albumin 4.0 gm/dl (3.4-5.0) 03/06/24 04:56 Globulin 2.7 gm/dl (2.5-4.0) 03/06/24 04:56 Albumin/Globulin Ratio 1.5 (0.9-2) 03/06/24 04:56 POC Stool Occult Blood Positive (Negative) A 03/06/24 05:52 CT abdomen pelvis: In order to exclude active gastrointestinal bleeding, CT with GI bleeding protocol is recommended for further evaluation. Colonic diverticuli in the region of the hepatic flexure with subtle surrounding fat stranding. The possibility of bowel thickening cannot be adequately commented on due to underdistention. Findings may be seen in early/developing diverticulitis. Clinical correlation and follow-up are recommended. Prominent central intrahepatic biliary channels. CBD is normal in diameter. Clinical and lab correlation is recommended. Gallbladder is distended with suggestion of subtle mucosal enhancement Sonogprahic correlation may be helpful. Multiple simple hepatic cysts were noted with the largest measuring 2cm in the right liver lobe. Nonspecific thickening of the bilateral adrenal gland possibly benign hyperplasia. Enlarged prostate and foci of dystrophic calcification were noted. Urinary bladder is thick-walled. This may be secondary to underdistention/cystitis. Need for US and lab correlation. Diagnostic Findings EKG as per my interpretation : Rate NSR, normal axis, T wave flattening anterolateral leads
--- NOTE | 2024-03-06 06:33 | CT Scan Report ---
EXAM: CT abd pelvis IV con only CLINICAL HISTORY: rectal bleed, 93 ml optiray 320, appendix-present TECHNIQUE: Contrast-enhanced CT of the abdomen and pelvis was performed, with the following protocol: axial images with reconstructed coronal and sagittal images. One of the following dose reduction techniques was utilized for this exam: Automated exposure control, adjustment of the mA and/or kV according to patient size, and use of iterative reconstruction. COMPARISON: None. FINDINGS: Abdomen: Liver: Normal in size, shape, and density. Multiple simple cysts were noted with the largest measuring 2cm in the right lobe. No focal lesions,or masses were identified. Prominent central intrahepatic biliary channels. Clinical and lab correlation is recommended. Gallbladder and Biliary System: Gallbladder is distended with suggestion of subtle mucosal enhancement. No discrete radiopaque calculus is seen. No wall thickening, pericholecystic fluid, or gallstones were identified. The common bile duct is normal in caliber without dilation. Pancreas: Pancreatic head, body, and tail are visualized and appear normal in size and density. No pancreatic masses or calcifications were noted. The pancreatic duct is not dilated. Spleen: Normal in size, shape, and density. No splenic lesions or masses were identified. Kidneys and Adrenal Glands: Both kidneys are normal in size, shape, and position. Cortical thickness is within normal limits. No renal calculi or hydronephrosis. A 1cm simple renal cyst was noted in the left kidney upper pole. Nonspecific thickening of the bilateral adrenal gland is likely a benign hyperplasia. Pelvis: Urinary Bladder: Urinary bladder is thick-walled. This may be secondary to underdistention/cystitis. Prostate: Enlarged measuring about 125cc. Foci of dystrophic calcification were noted. Seminal Vesicles: Normal in size and appearance. No abnormalities noted. Rectum and Sigmoid Colon: Normal wall thickness and no evidence of mass. Peritoneal and Retroperitoneal Structures: No free fluid or abnormal fluid collections were identified within the abdomen or pelvis. No lymphadenopathy was noted. Bowel: Colonic diverticuli in the region of the hepatic flexure with subtle surrounding fat stranding. The possibility of bowel thickening cannot be adequately commented on due to underdistention. Findings may be seen in early/developing diverticulitis. Clinical correlation and follow-up are recommended. The rest visualized bowel loops are normal in caliber and appearance. No evidence of bowel obstruction. Appendix is normal. The lower thorax Bilateral basal atelectasis bands were noted Bones and Soft Tissues: No fractures or abnormal masses were identified. IMPRESSION: In order to exclude active gastrointestinal bleeding, CT with GI bleeding protocol is recommended for further evaluation. Colonic diverticuli in the region of the hepatic flexure with subtle surrounding fat stranding. The possibility of bowel thickening cannot be adequately commented on due to underdistention. Findings may be seen in early/developing diverticulitis. Clinical correlation and follow-up are recommended. Prominent central intrahepatic biliary channels. CBD is normal in diameter. Clinical and lab correlation is recommended. Gallbladder is distended with suggestion of subtle mucosal enhancement Sonogprahic correlation may be helpful. Multiple simple hepatic cysts were noted with the largest measuring 2cm in the right liver lobe. Nonspecific thickening of the bilateral adrenal gland possibly benign hyperplasia. Enlarged prostate and foci of dystrophic calcification were noted. Urinary bladder is thick-walled. This may be secondary to underdistention/cystitis. Need for US and lab correlation. Bilateral basal atelectasis bands. [facility] was called at [phone] at 5:27 AM OCULARIST on 03/06/2024 and Nurse Buck was informed regarding the presence of Important Medical Findings in the report. Electronically signed by Naila Chavez 03-06-2024 06:32 AM
[2024-03-06] MEDS ORDERED: traMADol HCL 50 MG TABLET PO PRN (06:41)
[2024-03-06] MEDS ORDERED: PROMETHAZINE 6.25 MG/50.25 ML BAG IV PRN (06:41)
[2024-03-06] MEDS ORDERED: ACETAMINOPHEN 325 MG TAB PO PRN (06:41)
[2024-03-06] MEDS: AMPICILLIN/SULBACTAM SOD 3,000 MG/100 ML BAG IV STA (07:16)
[2024-03-06] MEDS: PIPERACILLIN/TAZOBACTAM 4.5 GM/100 ML BAG IV STA (07:25)
[2024-03-06 07:50] LABS: Appearance Urine Clear (Clear); Bacteria Urine Automated None Seen (None Seen); Bilirubin Urine Negative (Negative); Blood Urine Negative (Negative); Cast Urine Automated 0-2 /lpf (0-2); Color Urine Yellow; Epithelial Cell Urine Auto 0-2 /hpf (0-2); Glucose Urine UA Negative (Negative); Ketones Urine Negative (Negative); Leukocyte Esterase Urine Trace (Negative); Nitrite Urine Negative (Negative); Protein Urine Negative (Negative); RBC Urine Automated 0-2 /hpf (0-2); Specific Gravity Urine 1.025 (1.000-1.030); Urobilinogen Urine Negative (Negative); WBC Urine Automated 0-5 /hpf (0-5); pH Urine 7.5 (4.5-7.5)
[2024-03-06 08:34] LABS: Hematocrit (blood only) 38.4 % (42.0-52.0); Hemoglobin 12.9 g/dl (14.0-18.0)
[2024-03-06 09:21] LABS: Estimated Average Glucose 128 mg/dl; Hemoglobin A1C 6.1 % (4.5-5.6)
[2024-03-06] MEDS: MULTIVITAMIN TAB PO SCH (10:00)
[2024-03-06] MEDS: KETOCONAZOLE 2% CR 15 GM TUBE EXT SCH (10:00)
[2024-03-06] MEDS: PIPERACILLIN/TAZOBACTAM 4.5 GM/100 ML BAG IV SCH (11:33)
--- NOTE | 2024-03-06 12:30 | Communication Note ---
Date of Service: March 06, 2024 Patient seen on floor. Patient reports no additional bloody stools. Denies any abdominal pain. Abdomen: Soft, nontender, nondistended. Reviewed outpatient EMR. EGD last week showed mild gastritis, biopsies were taken Colonoscopy in 2020 showed diverticular disease and colon polyps Assessment: Suspect diverticular bleed with possible early diverticulitis Plan: Continue bowel rest, clear liquids Empiric antibiotics Monitor for recurrent GI bleeding
--- NOTE | 2024-03-06 14:59 | Electrocardiogram Report ---
Test Reason : Blood Pressure : */* mmHG Vent. Rate : 62 BPM Atrial Rate : 62 BPM P-R Int : 154 ms QRS Dur : 94 ms QT Int : 422 ms P-R-T Axes : -15 14 23 degrees QTcB Int : 428 ms Sinus rhythm with Premature atrial complexes Otherwise normal ECG Confirmed by Sina Mathew ([id number]) on 03/06/2024 2:58:56 PM Referred By: Confirmed By: Sina Mathew
[2024-03-06 15:35] LABS: iSTAT Creatinine 1.1 mg/dl (0.6-1.3); iSTAT Hemoglobin 13.3 g/dl (14.0-18.0); iSTAT Ionized Calcium 1.21 mmol/l (1.12-1.32); iSTAT Potassium 3.6 mmol/L (3.3-5.0)
[2024-03-06 19:44] LABS: Hematocrit (blood only) 33.2 % (42.0-52.0); Hemoglobin 11.5 g/dl (14.0-18.0)
[2024-03-07] MEDS ORDERED: Nursing to Pharmacy Communication SCH (01:45)
[2024-03-07 03:46] VITALS: TEMP 97.9
[2024-03-07 06:38] LABS: Basophils # (auto) 0.06 K/uL (0.00-0.20); Basophils % (auto) 0.6 %; Eosinophils # (auto) 0.17 K/uL (0.00-0.50); Eosinophils % (auto) 1.7 %; Hematocrit (blood only) 38.8 % (42.0-52.0); Hemoglobin 13.4 g/dl (14.0-18.0); Immature Granulocytes # (auto) 0.04 K/uL (0.01-0.20); Immature Granulocytes % (auto) 0.4 %; Lymphocytes # (auto) 2.21 K/uL (1.20-3.40); Lymphocytes % (auto) 22.7 %; Mean Corpuscular Hemoglobin 31.4 pg (25.0-34.0); Mean Corpuscular Hgb Conc 34.5 g/dL (32.0-36.0); Mean Corpuscular Volume 90.9 fL (80.0-100.0); Mean Platelet Volume 9.6 fL (9.4-12.4); Monocytes # (auto) 0.65 K/uL (0.11-0.59); Monocytes % (auto) 6.7 %; Neutrophils % (auto) 67.9 %; Platelet Count 195 K/uL (130-400); RDW Standard Deviation 42.8 fL (36.4-46.3); Red Blood Count 4.27 M/uL (4.70-6.10); White Blood Count 9.73 K/ul (4.8-10.8)
[2024-03-07 07:11] LABS: Calcium 8.8 mg/dl (8.6-10.3); Creatinine Clr Calc Pharmacy 64.8 ml/min; Potassium 3.7 mmol/L (3.5-5.1)
[2024-03-07] MEDS: AMOXICILLIN/CLAVULANATE 875 MG TAB PO SCH (08:38)
--- NOTE | 2024-03-07 09:50 | Discharge Summary ---
Discharge Summary Date of Service March 07, 2024 Principal Dx & Hospital Course #1 = Principal Diagnosis (1) Diverticular hemorrhage: (2) Diverticulitis: (3) Prediabetes: Plan Patient presented to the emergency room with complaints of bright red blood per rectum while having a bowel movement. Imaging in the emergency room showed possibly some mild diverticulitis developing. Patient was cared for in the hospital. Given some hydration put on bowel rest. Started on empiric antibiotics for presumed diverticulitis. Patient follows closely with gastroenterology. He actually had an upper endoscopy last week which showed some mild gastritis. Patient had a colonoscopy in 2019 which showed diverticulosis and some colon polyps. While in the hospital patient had no further bloody stools. He had minimal to no abdominal discomfort. Suspect the patient had a diverticular bleed and possibly some mild diverticulitis. On the morning of discharge she was transition to a regular diet. He was monitored and tolerated this well. Again had no further bleeding. His hemoglobin was trended and actually improved throughout his hospitalization. He was given instructions on diverticulosis diet. And he will follow-up with his outpatient [facility] intern. While in the hospital he did have some hyperglycemia. Hemoglobin A1c was 6.1%. He will did discuss further evaluation and treatment of his PCP. Notes For Next Care Provider Patient may need additional evaluation and treatment for elevated hemoglobin A1c of 6.1% Follow-up with gastroenterology as scheduled Medication Changes From Visit Augmentin for mild diverticulitis Protonix for gastritis seen on EGD last week Admission HPI Per Admitting Provider History obtained from patient, family, and records. Medical history significant for hyperlipidemia, Webb's esophagus, diverticu losis, hemorrhoids, colonic polyps, BPH, mood disorder, urolithiasis. Last confinement 1999 under ENT service for posterior epistaxis status post endoscopic cautery and posterior packing. Patient underwent outpatient EGD at outpatient [facility] facility few days ago as follow-up study for Webb's esophagus. EGD showed normal esophagus, single gastric polyp status post resection and gastritis. Normal duodenum. Repeat upper endoscopy contingent on pathology results as per endoscopy note. This morning, patient had bloody BM with mild achy lower abdominal pain. No nausea, no emesis, no fever, no chills. No recent antibiotic Rx or out-of-town travel. No headache, no chest pain, no SOB. OTC NSAID intake for chronic hip pain yesterday. Patient brought to ER by for evaluation. Medical History as above Colonoscopy 2020 showed diverticulosis, internal and external hemorrhoids, adenomatous polyps Surgical History : Cataract surgery, septoplasty, tonsillectomy, ulnar nerve revision Family History : DM Personal/Social history : Non-smoker, no EtOH intake, retired development chemist Admission Exam Per Admitting Provider See H&P Discharge Exam Constitutional: Alert HEENT: Mucous membranes moist. Lungs: Clear to auscultation, decreased, no wheezes rales or rhonchi CV: S1-S2, regular Abdomen: Soft, nontender, nondistended Extremities: No significant edema Neuro: No focal deficits Psych: Cooperative, normal mood Updated Medication List Medication Instructions Recorded Confirmed Type multivitamin (Daily Multi-Vitamin 1 tab PO DAILY 03/06/24 03/06/24 History tablet) naproxen 250 mg tablet 250 mg PO BID PRN Pain 03/06/24 03/06/24 History amoxicillin 875 mg-potassium 1 tab PO BIDM 5 days #10 tabs 03/07/24 Rx clavulanate 125 mg tablet ketoconazole 2 % topical cream 1 applic EXT BID #15 grams 03/07/24 Rx pantoprazole 40 mg tablet,delayed 40 mg PO DAILY 6 weeks #42 tabs 03/07/24 Rx release (Protonix) Hospital Stay Data Consultations 03/06/24 05:59 ED Decision to Admit Stat Diagnostic Imagining Performed 03/06/24 04:58 CT abd pelvis IV con only Stat Reviewed imaging, laboratory and diagnostic studies. Pertinent findings as below. WBCs 9.7 Hemoglobin 13.4 Platelets of 195 Electrolytes within normal range Creatinine 1.0 Fasting glucose of 100 Hemoglobin A1c 6.1% Pending Results Patient Have Any Pending Studies at Discharge: No Discharge Instructions Given to Patient (Per Discharging Provider) Follow-up with your [facility] intern as already scheduled Testing for your blood glucose was slightly elevated. Suspect you have prediabetes. Discussed with your PCP additional testing and/or possible interventions Total Time Total Time Spent Total Time Spent (In Minutes): 26
[2024-03-07 10:43] VITALS: BP 132/72; PULSE 58; RESP 14; O2SAT 95
== END 2024-03-07 13:21 | disposition home or self-care (01) ==
LOC: ED 04:21 → 2N 04:21